=== PATIENT | female | born 1935 | race Caucasian/White ===

== ENCOUNTER 2017-08-19 02:01 | Outpatient (CLI) | payer MEDICARE | END 2017-08-19 02:02 | disposition EMS.NT | LOC: EMS 02:01 | PROVIDERS: ATTEND Surgery | DX: R55 Syncope and collapse (principal); R73.09 Other abnormal glucose ==

== ENCOUNTER 2017-11-14 09:07 | Outpatient (CLI) | payer MEDICARE ==
--- NOTE | 2017-11-14 11:59 | XRAY Report ---
TWO-VIEW RIGHT SHOULDER: 11/14/2017 CLINICAL INDICATION: Pain. FINDINGS: Frontal and scapular Y views of the right shoulder demonstrate degenerative changes of the glenohumeral and acromioclavicular joints. There is no evidence of acute fracture. No foreign body is seen in the soft tissues. IMPRESSION: OSTEOARTHRITIS. NO EVIDENCE OF ACUTE FRACTURE. TD: 11/14/2017 11:58
== END 2017-11-14 09:08 | disposition home or self-care (01) ==
LOC: DI.S 09:07
PROVIDERS: ATTEND Family Medicine
DX: M25.511 Pain in right shoulder (principal); M19.011 Primary osteoarthritis, right shoulder

== ENCOUNTER 2017-12-12 08:00 | Outpatient (CLI) | payer MEDICARE | END 2017-12-12 08:01 | disposition home or self-care (01) | LOC: LAB.R 08:00 | PROVIDERS: ATTEND Nurse Practitioner Family | DX: S81.811A Laceration without foreign body, right lower leg, initial encounter (principal) | CPT/HCPCS: 87070; 87205 ==

== ENCOUNTER 2018-08-04 10:28 | Outpatient (CLI) | payer MEDICARE ==
[2018-08-04 18:20] LABS: HB2 TOTAL 11.4 g/dL; HEMOGLOBIN A1C 0.59 g/dL; HEMOGLOBIN A1C % 6.9 % (4.6-6.2)
[2018-08-04 19:47] LABS: ALBUMIN 3.7 g/dL (3.2-5.5); ALBUMIN/GLOBULIN RATIO 0.9 (1.0-2.2); ALKALINE PHOSPHATASE 63 IU/L (42-121); ALT ALANINE AMINOTRANSFERASE 15 IU/L (10-60); AST ASPARTATE AMINOTRANSFERASE 18 IU/L (10-42); BILIRUBIN,TOTAL 0.7 mg/dL (0.2-1.0); BUN - BLOOD UREA NITROGEN 41 mg/dL (6-20); CALCIUM 9.5 mg/dL (8.5-10.3); CARBON DIOXIDE - CO2 25 mmol/L (21-32); CHLORIDE 102 mmol/L (101-111); CHOL/HDL RATIO 3.9 (<4.4); CHOLESTEROL 190 mg/dL; CREATININE 1.9 mg/dL (0.4-1.0); GFR - MDRD 25 (>89); GLUCOSE 110 mg/dL (70-100); HDL CHOLESTEROL 49 mg/dL; LDL CHOLESTEROL,CALCULATED 118 mg/dL; LDL/HDL RATIO 2.4 (<4.4); SODIUM 136 mmol/L (135-145); TOTAL PROTEIN 7.6 g/dL (6.7-8.2); VLDL CHOLESTEROL 23 mg/dL
== END 2018-08-04 10:29 | disposition home or self-care (01) ==
LOC: LAB.F 10:28
PROVIDERS: ATTEND Internal Medicine
DX: E11.22 Type 2 diabetes mellitus with diabetic chronic kidney disease (principal)
CPT/HCPCS: 36415; 80053; 80061; 83036; 83721

== ENCOUNTER 2018-08-10 11:47 | Outpatient (CLI) | payer MEDICARE ==
[2018-08-10 17:58] LABS: CALCIUM 9.4 mg/dL (8.5-10.3); CREATININE 1.9 mg/dL (0.4-1.0)
== END 2018-08-10 23:59 | disposition home or self-care (01) ==
LOC: LAB.F 11:47
PROVIDERS: ATTEND Internal Medicine
DX: N18.3 Chronic kidney disease, stage 3 (moderate) (principal)
CPT/HCPCS: 36415; 80048

== ENCOUNTER 2018-10-02 08:40 | Outpatient (CLI) | payer MEDICARE ==
[2018-10-02 10:24] LABS: BASOPHILS # (AUTO) 0.2 10^3/uL (0.0-0.1); BASOPHILS % (AUTO) 1.7 %; EOSINOPHILS # (AUTO) 0.4 10^3/uL (0.0-0.7); EOSINOPHILS % (AUTO) 4.7 %; HGB - HEMOGLOBIN 9.7 g/dL (12.0-16.0); LYMPHOCYTES # (AUTO) 1.8 10^3/uL (1.5-3.5); MEAN CORPUSCULAR HGB CONC 33.1 g/dL (32.0-36.0); MEAN CORPUSCULAR VOLUME 84.7 fL (81.0-99.0); MEAN PLATELET VOLUME 9.4 fL (7.9-10.8); MONOCYTES # (AUTO) 0.8 10^3/uL (0.0-1.0); MONOCYTES % (AUTO) 8.7 %; NEUTROPHILS # (AUTO) 5.8 10^3/uL (1.5-6.6); NEUTROPHILS % (AUTO) 64.9 %; PLT - PLATELET COUNT 248 10^3/uL (130-450); RED BLOOD COUNT 3.46 10^6/uL (4.20-5.40); RED CELL DISTRIBUTION WIDTH 13.7 % (12.0-15.0)
[2018-10-02 10:26] LABS: BILIRUBIN,URINE NEGATIVE (NEGATIVE); GLUCOSE, URINE (UA) NEGATIVE (NEGATIVE); KETONES,URINE (UA) NEGATIVE (NEGATIVE); LEUKOCYTE ESTERASE, URINE NEGATIVE (NEGATIVE); NITRITE,URINE NEGATIVE (NEGATIVE); OCCULT BLOOD,URINE NEGATIVE (NEGATIVE); PROTEIN,URINE NEGATIVE (NEGATIVE); UROBILINOGEN,URINE 0.2 (NORMAL) E.U./dL (NORMAL)
[2018-10-02 10:27] LABS: CREATININE,URINE 95.2 mg/dL; PROTEIN/CREATININE RATIO,URINE 0.2 (<=0.2)
[2018-10-02 10:28] LABS: CLARITY,URINE CLEAR (CLEAR)
[2018-10-02 10:42] LABS: CALCIUM 9.2 mg/dL (8.5-10.3); CREATININE 2.1 mg/dL (0.4-1.0)
[2018-10-02 10:50] LABS: FERRITIN 317.2 ng/mL (11.0-306.8)
[2018-10-02 10:53] LABS: FOLATE 21.08 ng/mL (5.90 - >24.8)
== END 2018-10-02 08:41 | disposition home or self-care (01) ==
LOC: LAB.F 08:40
PROVIDERS: ATTEND Internal Medicine Nephrology
DX: N18.4 Chronic kidney disease, stage 4 (severe) (principal); D63.1 Anemia in chronic kidney disease
CPT/HCPCS: 36415; 80048; 81003; 82570; 82607; 82728; 82746; 83540; 83970; 84156; 84466; 85025

== ENCOUNTER 2018-10-18 14:04 | Outpatient (CLI) | payer MEDICARE ==
--- NOTE | 2018-10-19 08:54 | XRAY Report ---
Reason: OSTEOARTHRITIS OF LEFT KNEE,OSTEOARTHRITIS OF RIGH Procedure Date: 10/18/2018 Accession Number: [id number] / [id number] Procedure: XR - Knee 3 View BILAT CPT Code: FULL RESULT: EXAMS: 1. Right Knee Radiography 2. Left Knee Radiography EXAM DATE:10/18/2018 02:12 PM. CLINICAL HISTORY:Bilateral knee pain COMPARISON: None. TECHNIQUE: 3 views each. FINDINGS: Right Knee: Bones: No fractures or bone lesions. Joints: Medial knee joint space narrowing with spurring. Mild patellofemoral degenerative spurring. No effusion. No subluxations. Soft Tissues: Quadriceps insertion enthesophyte. Vascular calcification. Left Knee: Bones: No fractures or bone lesions. Joints: Degenerative change medial knee joint with spurring. Mild degenerative change patellofemoral articulation. Quadriceps insertion enthesophyte. No effusion. No subluxations. Soft Tissues: Vascular calcification IMPRESSION: No acute bony abnormality. Bilateral knee degenerative change most marked medial knee joint greater than patellofemoral articulation. RADIA
== END 2018-10-18 14:05 | disposition home or self-care (01) ==
LOC: DI 14:04
PROVIDERS: ATTEND Internal Medicine
DX: M17.0 Bilateral primary osteoarthritis of knee (principal)

== ENCOUNTER 2018-11-04 09:06 | Outpatient (CLI) | payer MEDICARE ==
[2018-11-04 17:46] LABS: BASOPHILS # (AUTO) 0.2 10^3/uL (0.0-0.1); BASOPHILS % (AUTO) 2.1 %; EOSINOPHILS # (AUTO) 0.5 10^3/uL (0.0-0.7); EOSINOPHILS % (AUTO) 5.6 %; LYMPHOCYTES # (AUTO) 1.8 10^3/uL (1.5-3.5); LYMPHOCYTES % (AUTO) 22.7 %; MEAN CORPUSCULAR HEMOGLOBIN 28.4 pg (27.0-31.0); MEAN CORPUSCULAR HGB CONC 32.4 g/dL (32.0-36.0); MEAN CORPUSCULAR VOLUME 87.5 fL (81.0-99.0); MEAN PLATELET VOLUME 9.2 fL (7.9-10.8); MONOCYTES # (AUTO) 0.8 10^3/uL (0.0-1.0); MONOCYTES % (AUTO) 9.6 %; NEUTROPHILS # (AUTO) 4.8 10^3/uL (1.5-6.6); PLT - PLATELET COUNT 308 10^3/uL (130-450); RED BLOOD COUNT 3.17 10^6/uL (4.20-5.40)
[2018-11-04 18:18] LABS: FERRITIN 327.1 ng/mL (11.0-306.8)
[2018-11-04 18:19] LABS: BILIRUBIN,URINE NEGATIVE (NEGATIVE); GLUCOSE, URINE (UA) NEGATIVE (NEGATIVE); KETONES,URINE (UA) NEGATIVE (NEGATIVE); LEUKOCYTE ESTERASE, URINE TRACE (NEGATIVE); NITRITE,URINE NEGATIVE (NEGATIVE); OCCULT BLOOD,URINE NEGATIVE (NEGATIVE); PROTEIN,URINE NEGATIVE (NEGATIVE); UROBILINOGEN,URINE 0.2 (NORMAL) E.U./dL (NORMAL)
[2018-11-04 18:21] LABS: FOLATE 14.53 ng/mL (5.90 - >24.8)
[2018-11-04 18:43] LABS: CALCIUM 9.5 mg/dL (8.5-10.3)
[2018-11-04 18:56] LABS: BACTERIA,URINE None Seen /HPF (None Seen); CLARITY,URINE CLEAR (CLEAR); RBC,URINE None Seen /HPF (0-5); SQUAMOUS EPITHELIAL CELL,UR FEW Squamous (<= Few)
[2018-11-04 19:04] LABS: CREATININE,URINE 41.2 mg/dL; PROTEIN/CREATININE RATIO,URINE 0.3 (<=0.2)
[2018-11-04 19:07] LABS: CREATININE 1.8 mg/dL (0.4-1.0)
== END 2018-11-04 09:07 | disposition home or self-care (01) ==
LOC: LAB.F 09:06
PROVIDERS: ATTEND Internal Medicine Nephrology
DX: N18.4 Chronic kidney disease, stage 4 (severe) (principal); D63.1 Anemia in chronic kidney disease
CPT/HCPCS: 36415; 80048; 81001; 82570; 82607; 82728; 82746; 83540; 84100; 84156; 84466; 85025

== ENCOUNTER 2018-12-08 11:34 | Outpatient (CLI) | payer MEDICARE ==
[2018-12-08 18:01] LABS: BASOPHILS # (AUTO) 0.1 10^3/uL (0.0-0.1); BASOPHILS % (AUTO) 1.5 %; EOSINOPHILS # (AUTO) 0.4 10^3/uL (0.0-0.7); EOSINOPHILS % (AUTO) 4.4 %; HGB - HEMOGLOBIN 8.2 g/dL (12.0-16.0); LYMPHOCYTES # (AUTO) 1.4 10^3/uL (1.5-3.5); LYMPHOCYTES % (AUTO) 16.4 %; MEAN CORPUSCULAR HEMOGLOBIN 28.9 pg (27.0-31.0); MEAN CORPUSCULAR HGB CONC 32.5 g/dL (32.0-36.0); MEAN CORPUSCULAR VOLUME 88.9 fL (81.0-99.0); MEAN PLATELET VOLUME 9.1 fL (7.9-10.8); MONOCYTES # (AUTO) 0.7 10^3/uL (0.0-1.0); MONOCYTES % (AUTO) 8.5 %; NEUTROPHILS # (AUTO) 5.9 10^3/uL (1.5-6.6); NEUTROPHILS % (AUTO) 69.2 %; PLT - PLATELET COUNT 281 10^3/uL (130-450); RED BLOOD COUNT 2.84 10^6/uL (4.20-5.40); RED CELL DISTRIBUTION WIDTH 14.7 % (12.0-15.0); WHITE BLOOD COUNT 8.5 x10^3/uL (4.8-10.8)
== END 2018-12-08 11:35 | disposition home or self-care (01) ==
LOC: LAB.F 11:34
PROVIDERS: ATTEND Emergency Medicine
DX: D64.9 Anemia, unspecified (principal)
CPT/HCPCS: 36415; 85025

== ENCOUNTER 2018-12-15 13:07 | Outpatient (CLI) | payer MEDICARE ==
[2018-12-15 17:41] LABS: BASOPHILS # (AUTO) 0.1 10^3/uL (0.0-0.1); BASOPHILS % (AUTO) 1.4 %; EOSINOPHILS # (AUTO) 0.4 10^3/uL (0.0-0.7); EOSINOPHILS % (AUTO) 4.2 %; HGB - HEMOGLOBIN 8.1 g/dL (12.0-16.0); LYMPHOCYTES # (AUTO) 1.6 10^3/uL (1.5-3.5); LYMPHOCYTES % (AUTO) 15.7 %; MEAN CORPUSCULAR HEMOGLOBIN 29.3 pg (27.0-31.0); MEAN CORPUSCULAR HGB CONC 32.8 g/dL (32.0-36.0); MEAN CORPUSCULAR VOLUME 89.5 fL (81.0-99.0); MEAN PLATELET VOLUME 9.4 fL (7.9-10.8); MONOCYTES % (AUTO) 9.9 %; NEUTROPHILS # (AUTO) 6.8 10^3/uL (1.5-6.6); NEUTROPHILS % (AUTO) 68.8 %; PLT - PLATELET COUNT 267 10^3/uL (130-450); RED BLOOD COUNT 2.76 10^6/uL (4.20-5.40); RED CELL DISTRIBUTION WIDTH 14.3 % (12.0-15.0); WHITE BLOOD COUNT 9.9 x10^3/uL (4.8-10.8)
[2018-12-15 17:50] LABS: BILIRUBIN,URINE NEGATIVE (NEGATIVE); GLUCOSE, URINE (UA) NEGATIVE (NEGATIVE); KETONES,URINE (UA) NEGATIVE (NEGATIVE); LEUKOCYTE ESTERASE, URINE TRACE (NEGATIVE); NITRITE,URINE NEGATIVE (NEGATIVE); OCCULT BLOOD,URINE NEGATIVE (NEGATIVE); PH,URINE 5.5 PH (5.0-7.5); PROTEIN,URINE NEGATIVE (NEGATIVE); UROBILINOGEN,URINE 0.2 (NORMAL) E.U./dL (NORMAL)
[2018-12-15 17:51] LABS: CLARITY,URINE HAZY (CLEAR)
[2018-12-15 18:00] LABS: CALCIUM 9.4 mg/dL (8.5-10.3); CREATININE 2.5 mg/dL (0.4-1.0)
[2018-12-15 18:12] LABS: BACTERIA,URINE None Seen /HPF (None Seen); RBC,URINE None Seen /HPF (0-5); SQUAMOUS EPITHELIAL CELL,UR NONE SEEN (<= Few)
[2018-12-15 18:18] LABS: FERRITIN 215.7 ng/mL (11.0-306.8)
[2018-12-15 18:32] LABS: CREATININE,URINE 23.6 mg/dL; TOTAL PROTEIN,URINE TIMED < 6 mg/dL
[2018-12-15 19:03] LABS: FOLATE > 49.60 ng/mL (5.90 - >24.8)
== END 2018-12-15 13:08 | disposition home or self-care (01) ==
LOC: LAB.F 13:07
PROVIDERS: ATTEND Internal Medicine Nephrology
DX: N18.4 Chronic kidney disease, stage 4 (severe) (principal)
CPT/HCPCS: 36415; 80048; 81001; 82570; 82607; 82728; 82746; 83540; 84156; 85025

== ENCOUNTER 2019-01-13 10:10 | Outpatient (CLI) | payer MEDICARE ==
[2019-01-13 17:52] LABS: BILIRUBIN,URINE NEGATIVE (NEGATIVE); GLUCOSE, URINE (UA) NEGATIVE (NEGATIVE); KETONES,URINE (UA) NEGATIVE (NEGATIVE); LEUKOCYTE ESTERASE, URINE SMALL (NEGATIVE); NITRITE,URINE NEGATIVE (NEGATIVE); OCCULT BLOOD,URINE NEGATIVE (NEGATIVE); PH,URINE 5.5 PH (5.0-7.5); PROTEIN,URINE NEGATIVE (NEGATIVE); UROBILINOGEN,URINE 0.2 (NORMAL) E.U./dL (NORMAL)
[2019-01-13 17:52] LABS: BASOPHILS # (AUTO) 0.1 10^3/uL (0.0-0.1); BASOPHILS % (AUTO) 1.2 %; EOSINOPHILS # (AUTO) 0.3 10^3/uL (0.0-0.7); EOSINOPHILS % (AUTO) 3.6 %; HGB - HEMOGLOBIN 8.7 g/dL (12.0-16.0); LYMPHOCYTES # (AUTO) 1.8 10^3/uL (1.5-3.5); LYMPHOCYTES % (AUTO) 19.2 %; MEAN CORPUSCULAR HEMOGLOBIN 28.8 pg (27.0-31.0); MEAN CORPUSCULAR HGB CONC 30.5 g/dL (32.0-36.0); MEAN CORPUSCULAR VOLUME 94.4 fL (81.0-99.0); MONOCYTES # (AUTO) 0.8 10^3/uL (0.0-1.0); MONOCYTES % (AUTO) 8.4 %; NEUTROPHILS # (AUTO) 6.1 10^3/uL (1.5-6.6); NEUTROPHILS % (AUTO) 67.4 %; PLT - PLATELET COUNT 305 10^3/uL (130-450); RED BLOOD COUNT 3.02 10^6/uL (4.20-5.40); RED CELL DISTRIBUTION WIDTH 13.2 % (12.0-15.0); WHITE BLOOD COUNT 9.1 x10^3/uL (4.8-10.8)
[2019-01-13 18:02] LABS: CLARITY,URINE CLEAR (CLEAR)
[2019-01-13 18:10] LABS: BACTERIA,URINE None Seen /HPF (None Seen); RBC,URINE 0-5 /HPF (0-5); SQUAMOUS EPITHELIAL CELL,UR RARE Squamous (<= Few)
[2019-01-13 18:22] LABS: CALCIUM 9.3 mg/dL (8.5-10.3); CREATININE 1.9 mg/dL (0.4-1.0)
[2019-01-13 18:41] LABS: CREATININE,URINE 48.5 mg/dL
[2019-01-13 18:42] LABS: TOTAL PROTEIN,URINE TIMED < 6 mg/dL
== END 2019-01-13 10:11 | disposition home or self-care (01) ==
LOC: LAB.S 10:10
PROVIDERS: ATTEND Emergency Medicine
DX: D64.9 Anemia, unspecified (principal); N18.4 Chronic kidney disease, stage 4 (severe)
CPT/HCPCS: 36415; 80048; 81001; 82570; 82607; 82728; 82746; 83540; 84156; 84466; 85025

== ENCOUNTER 2019-01-20 14:02 | Outpatient (CLI) | payer MEDICARE ==
[2019-01-20 17:22] LABS: BASOPHILS # (AUTO) 0.1 10^3/uL (0.0-0.1); BASOPHILS % (AUTO) 1.1 %; EOSINOPHILS # (AUTO) 0.4 10^3/uL (0.0-0.7); EOSINOPHILS % (AUTO) 3.8 %; HGB - HEMOGLOBIN 8.7 g/dL (12.0-16.0); LYMPHOCYTES % (AUTO) 19.5 %; MEAN CORPUSCULAR HEMOGLOBIN 28.5 pg (27.0-31.0); MEAN CORPUSCULAR HGB CONC 30.6 g/dL (32.0-36.0); MEAN CORPUSCULAR VOLUME 93.1 fL (81.0-99.0); MEAN PLATELET VOLUME 11.4 fL (7.9-10.8); MONOCYTES # (AUTO) 0.9 10^3/uL (0.0-1.0); MONOCYTES % (AUTO) 9.1 %; NEUTROPHILS # (AUTO) 6.7 10^3/uL (1.5-6.6); NEUTROPHILS % (AUTO) 66.2 %; PLT - PLATELET COUNT 298 10^3/uL (130-450); RED BLOOD COUNT 3.05 10^6/uL (4.20-5.40); RED CELL DISTRIBUTION WIDTH 12.8 % (12.0-15.0); WHITE BLOOD COUNT 10.2 x10^3/uL (4.8-10.8)
== END 2019-01-20 14:03 | disposition home or self-care (01) ==
LOC: LAB.S 14:02
PROVIDERS: ATTEND Emergency Medicine
DX: N18.4 Chronic kidney disease, stage 4 (severe) (principal); D63.1 Anemia in chronic kidney disease
CPT/HCPCS: 36415; 85025

== ENCOUNTER 2019-08-04 14:37 | Outpatient (CLI) | payer MEDICARE ==
[2019-08-04 17:22] LABS: BASOPHILS # (AUTO) 0.2 10^3/uL (0.0-0.1); BASOPHILS % (AUTO) 1.4 %; EOSINOPHILS # (AUTO) 0.3 10^3/uL (0.0-0.7); EOSINOPHILS % (AUTO) 3.2 %; HGB - HEMOGLOBIN 8.9 g/dL (12.0-16.0); LYMPHOCYTES # (AUTO) 2.3 10^3/uL (1.5-3.5); LYMPHOCYTES % (AUTO) 21.8 %; MEAN CORPUSCULAR HEMOGLOBIN 29.1 pg (27.0-31.0); MEAN CORPUSCULAR HGB CONC 31.2 g/dL (32.0-36.0); MEAN CORPUSCULAR VOLUME 93.1 fL (81.0-99.0); MEAN PLATELET VOLUME 11.4 fL (7.9-10.8); MONOCYTES % (AUTO) 9.1 %; NEUTROPHILS # (AUTO) 6.8 10^3/uL (1.5-6.6); PLT - PLATELET COUNT 296 10^3/uL (130-450); RED BLOOD COUNT 3.06 10^6/uL (4.20-5.40); RED CELL DISTRIBUTION WIDTH 12.3 % (12.0-15.0); WHITE BLOOD COUNT 10.6 x10^3/uL (4.8-10.8)
== END 2019-08-04 14:38 | disposition home or self-care (01) ==
LOC: LAB.S 14:37
PROVIDERS: ATTEND Emergency Medicine
DX: N18.4 Chronic kidney disease, stage 4 (severe) (principal)
CPT/HCPCS: 36415; 85025

== ENCOUNTER 2019-08-12 09:06 | Outpatient (CLI) | payer MEDICARE ==
[2019-08-12 17:55] LABS: HEMOGLOBIN A1C 0.55 g/dL; HEMOGLOBIN A1C % 7.7 % (4.6-6.2)
[2019-08-12 18:00] LABS: ALBUMIN 3.6 g/dL (3.2-5.5); ALBUMIN/GLOBULIN RATIO 1.1 (1.0-2.2); ALKALINE PHOSPHATASE 43 IU/L (42-121); ALT ALANINE AMINOTRANSFERASE 13 IU/L (10-60); AST ASPARTATE AMINOTRANSFERASE 17 IU/L (10-42); BILIRUBIN,TOTAL 0.6 mg/dL (0.2-1.0); BUN - BLOOD UREA NITROGEN 38 mg/dL (6-20); CALCIUM 9.3 mg/dL (8.5-10.3); CARBON DIOXIDE - CO2 25 mmol/L (21-32); CHLORIDE 106 mmol/L (101-111); CHOL/HDL RATIO 4.3 (<4.4); CHOLESTEROL 199 mg/dL; GFR - MDRD 24 (>89); GLUCOSE 122 mg/dL (70-100); HDL CHOLESTEROL 46 mg/dL; LDL CHOLESTEROL,CALCULATED 128 mg/dL; LDL/HDL RATIO 2.8 (<4.4); SODIUM 139 mmol/L (135-145); TOTAL PROTEIN 6.9 g/dL (6.7-8.2); VLDL CHOLESTEROL 25 mg/dL
== END 2019-08-12 09:07 | disposition home or self-care (01) ==
LOC: LAB.S 09:06
PROVIDERS: ATTEND Internal Medicine
DX: E11.22 Type 2 diabetes mellitus with diabetic chronic kidney disease (principal)
CPT/HCPCS: 36415; 80053; 80061; 83036; 83721

== ENCOUNTER 2019-08-31 08:46 | Outpatient (CLI) | payer MEDICARE ==
[2019-08-31 17:45] LABS: ALBUMIN 3.7 g/dL (3.2-5.5); CALCIUM 9.7 mg/dL (8.5-10.3); PHOSPHORUS 3.7 mg/dL (2.5-4.6)
== END 2019-08-31 08:47 | disposition home or self-care (01) ==
LOC: LAB.S 08:46
PROVIDERS: ATTEND Internal Medicine Nephrology
DX: N18.4 Chronic kidney disease, stage 4 (severe) (principal)
CPT/HCPCS: 36415; 80069; 83970

== ENCOUNTER 2019-10-07 13:15 | Outpatient (CLI) | payer MEDICARE ==
[2019-10-07 16:24] LABS: ALBUMIN 3.7 g/dL (3.2-5.5); CALCIUM 9.3 mg/dL (8.5-10.3); PHOSPHORUS 3.8 mg/dL (2.5-4.6)
== END 2019-10-07 13:16 | disposition home or self-care (01) ==
LOC: LAB.S 13:15
PROVIDERS: ATTEND Internal Medicine Nephrology
DX: N18.4 Chronic kidney disease, stage 4 (severe) (principal)
CPT/HCPCS: 36415; 80069; 83970

== ENCOUNTER 2019-10-22 14:03 | Emergency (ER) | payer MEDICARE ==
[2019-10-22] MEDS ORDERED: PROPARACAINE 0.5% OPHTH DROPS 15 ML EACHEYE STA (14:26)
--- NOTE | 2019-10-22 14:27 | ED Physician Documentation ---
PD HPI OPHTHO - Stated complaint Stated Complaint: R EYE PX - Chief complaint Chief Complaint: Heent - History obtained from History obtained from: Patient - History of Present Illness Timing - onset: How many days ago (3) Timing - duration: Days (3) Timing - details: Abrupt onset, Still present Location: Right Quality / character: Aching Associated symptoms: Redness, Matting, FB sensation Contributing factors: FB (she was weed wacking 3 days ago and felt something into her right eye. tried to flush it out, but has persistent FB feeling at lateral right eye. Watering and has some matting in mornings. No prior similar.). No: Wears contacts Similar symptoms before: Has not had sx before Review of Systems Constitutional: denies: Fever, Chills Eyes: reports: Discharge, Irritation. 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 - Present Medications Home Medications: Ambulatory Orders Medication Instructions Recorded Confirmed Alendronate Sodium [Fosamax] 70 mg PO TITR 11/29/13 10/13/14 Aspirin Chewable [St Yoseph 81 mg PO DAILY 11/29/13 01/05/18 Aspirin] Insulin Glargine [Lantus Solostar] 10 - 30 units SUBQ QPM 11/29/13 01/05/18 Insulin Glulisine [Apidra] 3 - 10 unit SQ TIDWM 08/04/14 01/05/18 Lovastatin 20 mg PO QPM 10/14/14 01/05/18 Omeprazole 20 mg PO QDAC 10/14/14 01/05/18 Albuterol Sulf [Ventolin Hfa 1 - 2 puffs INH Q4HR PRN 01/05/18 01/05/18 Inhaler] Cholecalciferol [Vitamin D3] 5,000 unit PO DAILY 01/05/18 01/05/18 Cyanocobalamin (Vitamin B-12) 2,500 mcg PO DAILY 01/05/18 01/05/18 [Vitamin B-12] Doxazosin Mesylate 1 mg PO BID 01/05/18 01/05/18 Furosemide 20 mg PO DAILY PRN 01/05/18 01/05/18 Valsartan 80 mg PO DAILY 01/05/18 01/05/18 Neomycin Rueda/Baci Zn/Poly/Hc 1 applic OP QID #3.5 oint...g. 10/22/19 [Isac-Polycin Hc Eye Ointment] - Allergies Allergies/Adverse Reactions: Allergies Allergy/AdvReac Type Severity Reaction Status Date / Time No Known Drug Allergies Allergy Verified 10/22/19 14:15 - Social History Does the pt smoke?: No Smoking Status: Never smoker - Immunizations Immunizations are current?: Yes PD ED PE NORMAL - Vitals Vital signs reviewed: Yes - General General: Alert and oriented X 3, No acute distress, Well developed/nourished - HEENT HEENT: PERRL, EOMI, Other (right periorbital area of eyelids have some redness and swelling. No noted FB. Staining showed local linear uptake at lateral sclera, c/w infection. ) - Neck Neck: Supple, no meningeal sign, No adenopathy PD ED PE EXPANDED - Eyes Eyes: Fluorescein uptake, Anterior chambers clear, Normal fundi Results - Vitals Vitals: Vital Signs - 24 hr 10/22/19 10/22/19 14:15 15:33 Temperature 36.8 C Heart Rate 52 L 109 H Respiratory 17 18 Rate Blood Pressure 153/86 H 186/102 H O2 Saturation 98 98 Oxygen O2 Source Room air PD MEDICAL DECISION MAKING - ED course Complexity details: considered differential, d/w patient Departure - Departure Disposition: 01 Home, Self Care Clinical Impression: Corneal abrasion Qualifiers: Encounter type: initial encounter Laterality: right Qualified Code(s): S05.01XA - Injury of conjunctiva and corneal abrasion without foreign body, right eye, initial encounter Conjunctivitis, acute Qualifiers: Acute conjunctivitis type: unspecified Laterality: right Qualified Code(s): H10.31 - Unspecified acute conjunctivitis, right eye Condition: Stable Record reviewed to determine appropriate education?: Yes Instructions: ED Eye Injury Corneal Abrasion Follow-Up: Uvaldo Rodriguez MD [Primary Care Provider] - Prescriptions: Neomycin Rueda/Baci Zn/Poly/Hc [Isac-Polycin Hc Eye Ointment] 1 applic OP QID #3.5 oint...g. Comments: Use the antibiotic/anti-inflammatory eye ointment 4 times a day for the next several days until this feels fully healed. There is an abrasion on the surface of the eye that should heal up on its own. The ointment component of this should help soothe the area on the surface of the eye. The antibiotic and anti-inflammatory portions are to try to help with the swelling and irritation and in case there is some infection brewing. Recheck if not improved well over the next couple of days and return sooner if worsening. Discharge Date/Time: 10/22/19 15:44
[2019-10-22 15:34] VITALS: BP 186/102
== END 2019-10-22 15:44 | disposition home or self-care (01) ==
LOC: ED 14:03
DX: S05.01XA Injury of conjunctiva and corneal abrasion without foreign body, right eye, initial encounter (principal); W20.8XXA Other cause of strike by thrown, projected or falling object, initial encounter; Y93.H2 Activity, gardening and landscaping; H10.31 Unspecified acute conjunctivitis, right eye; I10 Essential (primary) hypertension; E11.9 Type 2 diabetes mellitus without complications; Z79.4 Long term (current) use of insulin
CPT/HCPCS: 99282; 99283; J3490

== ENCOUNTER 2019-10-27 15:21 | Outpatient (CLI) | payer MEDICARE ==
[2019-10-27 15:42] LABS: BASOPHILS # (AUTO) 0.1 10^3/uL (0.0-0.1); EOSINOPHILS # (AUTO) 0.4 10^3/uL (0.0-0.7); EOSINOPHILS % (AUTO) 3.9 %; HGB - HEMOGLOBIN 8.7 g/dL (12.0-16.0); LYMPHOCYTES % (AUTO) 20.7 %; MEAN CORPUSCULAR HEMOGLOBIN 29.7 pg (27.0-31.0); MEAN CORPUSCULAR VOLUME 92.8 fL (81.0-99.0); MONOCYTES # (AUTO) 0.8 10^3/uL (0.0-1.0); MONOCYTES % (AUTO) 8.5 %; NEUTROPHILS # (AUTO) 6.4 10^3/uL (1.5-6.6); NEUTROPHILS % (AUTO) 65.4 %; PLT - PLATELET COUNT 234 10^3/uL (130-450); RED BLOOD COUNT 2.93 10^6/uL (4.20-5.40); RED CELL DISTRIBUTION WIDTH 12.8 % (12.0-15.0); WHITE BLOOD COUNT 9.8 x10^3/uL (4.8-10.8)
[2019-10-27 16:01] LABS: % IRON SATURATION 25 % (20-50); IRON 62 ug/dL (28-170); TOTAL IRON BINDING CAPACITY 249 ug/dL (250-450); TRANSFERRIN 178 mg/dL (192-382)
== END 2019-10-27 15:22 | disposition home or self-care (01) ==
LOC: LAB 15:21
PROVIDERS: ATTEND Emergency Medicine
DX: Z51.81 Encounter for therapeutic drug level monitoring (principal); Z79.899 Other long term (current) drug therapy
CPT/HCPCS: 36415; 82728; 83540; 84466; 85025

== ENCOUNTER 2019-11-14 13:12 | Outpatient (CLI) | payer MEDICARE ==
[2019-11-14 13:29] LABS: BASOPHILS # (AUTO) 0.1 10^3/uL (0.0-0.1); BASOPHILS % (AUTO) 1.1 %; EOSINOPHILS # (AUTO) 0.3 10^3/uL (0.0-0.7); EOSINOPHILS % (AUTO) 2.9 %; LYMPHOCYTES # (AUTO) 1.5 10^3/uL (1.5-3.5); LYMPHOCYTES % (AUTO) 13.7 %; MEAN CORPUSCULAR HEMOGLOBIN 29.8 pg (27.0-31.0); MEAN CORPUSCULAR HGB CONC 32.1 g/dL (32.0-36.0); MEAN CORPUSCULAR VOLUME 92.7 fL (81.0-99.0); MEAN PLATELET VOLUME 9.8 fL (7.9-10.8); MONOCYTES % (AUTO) 9.1 %; NEUTROPHILS # (AUTO) 7.7 10^3/uL (1.5-6.6); NEUTROPHILS % (AUTO) 72.7 %; PLT - PLATELET COUNT 261 10^3/uL (130-450); RED BLOOD COUNT 3.02 10^6/uL (4.20-5.40); RED CELL DISTRIBUTION WIDTH 13.3 % (12.0-15.0); WHITE BLOOD COUNT 10.6 x10^3/uL (4.8-10.8)
[2019-11-14 14:29] LABS: ALBUMIN 3.6 g/dL (3.2-5.5); CALCIUM 8.7 mg/dL (8.5-10.3); CREATININE 2.1 mg/dL (0.4-1.0); PHOSPHORUS 3.6 mg/dL (2.5-4.6)
== END 2019-11-14 13:13 | disposition home or self-care (01) ==
LOC: LAB 13:12
PROVIDERS: ATTEND Internal Medicine Nephrology
DX: D64.9 Anemia, unspecified (principal); N18.4 Chronic kidney disease, stage 4 (severe)
CPT/HCPCS: 36415; 80069; 83970; 85025

== ENCOUNTER 2019-11-29 13:01 | Outpatient (CLI) | payer MEDICARE ==
[2019-11-29 13:33] LABS: BASOPHILS # (AUTO) 0.1 10^3/uL (0.0-0.1); BASOPHILS % (AUTO) 0.9 %; EOSINOPHILS # (AUTO) 0.3 10^3/uL (0.0-0.7); EOSINOPHILS % (AUTO) 2.4 %; LYMPHOCYTES # (AUTO) 1.7 10^3/uL (1.5-3.5); MEAN CORPUSCULAR HEMOGLOBIN 29.9 pg (27.0-31.0); MEAN CORPUSCULAR HGB CONC 31.9 g/dL (32.0-36.0); MEAN CORPUSCULAR VOLUME 93.7 fL (81.0-99.0); MONOCYTES # (AUTO) 1.1 10^3/uL (0.0-1.0); MONOCYTES % (AUTO) 9.7 %; NEUTROPHILS # (AUTO) 8.3 10^3/uL (1.5-6.6); NEUTROPHILS % (AUTO) 71.6 %; PLT - PLATELET COUNT 306 10^3/uL (130-450); RED BLOOD COUNT 3.34 10^6/uL (4.20-5.40); RED CELL DISTRIBUTION WIDTH 14.1 % (12.0-15.0); WHITE BLOOD COUNT 11.6 x10^3/uL (4.8-10.8)
[2019-11-29 13:46] LABS: CREATININE 1.9 mg/dL (0.4-1.0)
== END 2019-11-29 13:02 | disposition home or self-care (01) ==
LOC: LAB 13:01
PROVIDERS: ATTEND Emergency Medicine
DX: D64.9 Anemia, unspecified (principal); N18.4 Chronic kidney disease, stage 4 (severe)
CPT/HCPCS: 36415; 80069; 82565; 83970; 85025

== ENCOUNTER 2019-12-15 13:56 | Outpatient (CLI) | payer MEDICARE ==
[2019-12-15 19:49] LABS: BASOPHILS # (AUTO) 0.1 10^3/uL (0.0-0.1); EOSINOPHILS # (AUTO) 0.2 10^3/uL (0.0-0.7); EOSINOPHILS % (AUTO) 1.9 %; LYMPHOCYTES # (AUTO) 1.5 10^3/uL (1.5-3.5); LYMPHOCYTES % (AUTO) 12.5 %; MEAN CORPUSCULAR HGB CONC 31.7 g/dL (32.0-36.0); MEAN CORPUSCULAR VOLUME 94.6 fL (81.0-99.0); MEAN PLATELET VOLUME 11.2 fL (7.9-10.8); MONOCYTES % (AUTO) 8.6 %; NEUTROPHILS # (AUTO) 9.1 10^3/uL (1.5-6.6); NEUTROPHILS % (AUTO) 75.7 %; PLT - PLATELET COUNT 316 10^3/uL (130-450); RED BLOOD COUNT 3.33 10^6/uL (4.20-5.40); RED CELL DISTRIBUTION WIDTH 13.5 % (12.0-15.0)
[2019-12-15 20:04] LABS: ALBUMIN 3.7 g/dL (3.2-5.5); CALCIUM 9.3 mg/dL (8.5-10.3); CREATININE 2.3 mg/dL (0.4-1.0); PHOSPHORUS 4.3 mg/dL (2.5-4.6)
== END 2019-12-15 13:57 | disposition home or self-care (01) ==
LOC: LAB.S 13:56
PROVIDERS: ATTEND Emergency Medicine
DX: D64.9 Anemia, unspecified (principal); N18.4 Chronic kidney disease, stage 4 (severe)
CPT/HCPCS: 36415; 80069; 83970; 85025

== ENCOUNTER 2019-12-21 11:24 | Outpatient (CLI) | payer MEDICARE ==
--- NOTE | 2019-12-21 15:02 | XRAY Report ---
Reason: M17.11 AND M17.12 OSTEOARTHRITIS OF KNEE Procedure Date: 12/21/2019 Accession Number: [id number] / [id number] Procedure: XRS - Knee 3 View BILAT CPT Code: Final Report FULL RESULT: PROCEDURE: Knee 3 View BILAT INDICATIONS: M17.11 AND M17.12 OSTEOARTHRITIS OF KNEE TECHNIQUE: 3 views of the right and left knee(s) were acquired. COMPARISON: None. FINDINGS: Bones: No fractures or dislocations. No suspicious bony lesions. Mild osteoarthritic degenerative changes noted in the medial compartments of both the right and left knees. Moderate osteophytic degenerative changes noted in the medial and patellofemoral compartments of both the right and left knees. Soft tissues: No joint effusion. No suspicious soft tissue calcifications. IMPRESSION: Bilateral knee tricompartmental osteoarthritis. Reviewed by: Diane Junior MD, PhD on 12/21/2019 3:01 PM PDT Approved by: Diane Junior MD, PhD on 12/21/2019 3:01 PM PDT Station ID: [id number]
== END 2019-12-21 11:25 | disposition home or self-care (01) ==
LOC: DI.S 11:24
PROVIDERS: ATTEND Internal Medicine
DX: M17.0 Bilateral primary osteoarthritis of knee (principal)

== ENCOUNTER 2019-12-28 11:54 | Outpatient (CLI) | payer MEDICARE ==
[2019-12-28 16:01] LABS: HB2 TOTAL 10.4 g/dL; HEMOGLOBIN A1C 0.54 g/dL; HEMOGLOBIN A1C % 6.9 % (4.6-6.2)
== END 2019-12-28 11:55 | disposition home or self-care (01) ==
LOC: LAB.S 11:54
PROVIDERS: ATTEND Internal Medicine
DX: E11.22 Type 2 diabetes mellitus with diabetic chronic kidney disease (principal); N18.9 Chronic kidney disease, unspecified
CPT/HCPCS: 36415; 83036

== ENCOUNTER 2020-01-03 10:01 | Outpatient (CLI) | payer MEDICARE ==
[2020-01-03 15:39] LABS: BASOPHILS # (AUTO) 0.1 10^3/uL (0.0-0.1); BASOPHILS % (AUTO) 1.5 %; EOSINOPHILS # (AUTO) 0.2 10^3/uL (0.0-0.7); EOSINOPHILS % (AUTO) 3.2 %; HGB - HEMOGLOBIN 10.2 g/dL (12.0-16.0); LYMPHOCYTES # (AUTO) 1.2 10^3/uL (1.5-3.5); LYMPHOCYTES % (AUTO) 15.7 %; MEAN CORPUSCULAR HEMOGLOBIN 30.2 pg (27.0-31.0); MEAN CORPUSCULAR HGB CONC 31.5 g/dL (32.0-36.0); MEAN CORPUSCULAR VOLUME 95.9 fL (81.0-99.0); MEAN PLATELET VOLUME 11.3 fL (7.9-10.8); MONOCYTES # (AUTO) 0.7 10^3/uL (0.0-1.0); MONOCYTES % (AUTO) 9.4 %; NEUTROPHILS # (AUTO) 5.2 10^3/uL (1.5-6.6); NEUTROPHILS % (AUTO) 69.7 %; PLT - PLATELET COUNT 287 10^3/uL (130-450); RED BLOOD COUNT 3.38 10^6/uL (4.20-5.40); RED CELL DISTRIBUTION WIDTH 13.5 % (12.0-15.0); WHITE BLOOD COUNT 7.4 x10^3/uL (4.8-10.8)
[2020-01-03 16:04] LABS: CREATININE 2.1 mg/dL (0.4-1.0)
== END 2020-01-03 10:02 | disposition home or self-care (01) ==
LOC: LAB.S 10:01
PROVIDERS: ATTEND Emergency Medicine
DX: D64.9 Anemia, unspecified (principal)
CPT/HCPCS: 36415; 82565; 85025

== ENCOUNTER 2020-01-17 11:33 | Outpatient (CLI) | payer MEDICARE ==
[2020-01-17 15:35] LABS: BASOPHILS # (AUTO) 0.1 10^3/uL (0.0-0.1); BASOPHILS % (AUTO) 1.2 %; EOSINOPHILS # (AUTO) 0.2 10^3/uL (0.0-0.7); EOSINOPHILS % (AUTO) 2.8 %; HGB - HEMOGLOBIN 11.3 g/dL (12.0-16.0); LYMPHOCYTES # (AUTO) 1.3 10^3/uL (1.5-3.5); LYMPHOCYTES % (AUTO) 14.6 %; MEAN CORPUSCULAR HEMOGLOBIN 30.3 pg (27.0-31.0); MEAN CORPUSCULAR HGB CONC 31.7 g/dL (32.0-36.0); MEAN CORPUSCULAR VOLUME 95.4 fL (81.0-99.0); MEAN PLATELET VOLUME 11.1 fL (7.9-10.8); MONOCYTES # (AUTO) 0.8 10^3/uL (0.0-1.0); MONOCYTES % (AUTO) 8.9 %; NEUTROPHILS # (AUTO) 6.3 10^3/uL (1.5-6.6); NEUTROPHILS % (AUTO) 72.3 %; PLT - PLATELET COUNT 309 10^3/uL (130-450); RED BLOOD COUNT 3.73 10^6/uL (4.20-5.40); WHITE BLOOD COUNT 8.7 x10^3/uL (4.8-10.8)
[2020-01-17 15:52] LABS: CREATININE 2.2 mg/dL (0.4-1.0)
[2020-01-17 15:56] LABS: ALBUMIN 4.1 g/dL (3.2-5.5); CALCIUM 9.5 mg/dL (8.5-10.3); CREATININE 2.1 mg/dL (0.4-1.0); PHOSPHORUS 4.2 mg/dL (2.5-4.6)
== END 2020-01-17 11:34 | disposition home or self-care (01) ==
LOC: LAB.S 11:33
PROVIDERS: ATTEND Emergency Medicine
DX: N18.4 Chronic kidney disease, stage 4 (severe) (principal); D63.1 Anemia in chronic kidney disease
CPT/HCPCS: 36415; 80069; 82565; 83970; 85025

== ENCOUNTER 2020-01-31 14:14 | Outpatient (CLI) | payer MEDICARE ==
[2020-01-31 19:56] LABS: BASOPHILS # (AUTO) 0.1 10^3/uL (0.0-0.1); BASOPHILS % (AUTO) 1.4 %; EOSINOPHILS # (AUTO) 0.3 10^3/uL (0.0-0.7); EOSINOPHILS % (AUTO) 3.3 %; HGB - HEMOGLOBIN 11.9 g/dL (12.0-16.0); LYMPHOCYTES # (AUTO) 1.7 10^3/uL (1.5-3.5); LYMPHOCYTES % (AUTO) 17.9 %; MEAN CORPUSCULAR HEMOGLOBIN 29.5 pg (27.0-31.0); MEAN CORPUSCULAR HGB CONC 31.2 g/dL (32.0-36.0); MEAN CORPUSCULAR VOLUME 94.6 fL (81.0-99.0); MEAN PLATELET VOLUME 11.2 fL (7.9-10.8); MONOCYTES % (AUTO) 10.2 %; NEUTROPHILS # (AUTO) 6.4 10^3/uL (1.5-6.6); NEUTROPHILS % (AUTO) 66.8 %; PLT - PLATELET COUNT 285 10^3/uL (130-450); RED BLOOD COUNT 4.04 10^6/uL (4.20-5.40); RED CELL DISTRIBUTION WIDTH 13.4 % (12.0-15.0); WHITE BLOOD COUNT 9.6 x10^3/uL (4.8-10.8)
[2020-01-31 20:19] LABS: % IRON SATURATION 12 % (20-50); IRON 33 ug/dL (28-170); TOTAL IRON BINDING CAPACITY 270 ug/dL (250-450); TRANSFERRIN 193 mg/dL (192-382)
== END 2020-01-31 14:15 | disposition home or self-care (01) ==
LOC: LAB.S 14:14
PROVIDERS: ATTEND Emergency Medicine
DX: N18.4 Chronic kidney disease, stage 4 (severe) (principal)
CPT/HCPCS: 36415; 82728; 83540; 84466; 85025

== ENCOUNTER 2020-03-01 15:30 | Outpatient (CLI) | payer MEDICARE ==
[2020-03-01 19:46] LABS: BASOPHILS # (AUTO) 0.1 10^3/uL (0.0-0.1); BASOPHILS % (AUTO) 1.1 %; EOSINOPHILS # (AUTO) 0.4 10^3/uL (0.0-0.7); EOSINOPHILS % (AUTO) 3.3 %; HGB - HEMOGLOBIN 12.8 g/dL (12.0-16.0); LYMPHOCYTES # (AUTO) 1.8 10^3/uL (1.5-3.5); LYMPHOCYTES % (AUTO) 17.1 %; MEAN CORPUSCULAR HEMOGLOBIN 28.8 pg (27.0-31.0); MEAN CORPUSCULAR HGB CONC 30.7 g/dL (32.0-36.0); MEAN CORPUSCULAR VOLUME 93.7 fL (81.0-99.0); MEAN PLATELET VOLUME 10.9 fL (7.9-10.8); MONOCYTES # (AUTO) 0.9 10^3/uL (0.0-1.0); MONOCYTES % (AUTO) 8.5 %; NEUTROPHILS # (AUTO) 7.4 10^3/uL (1.5-6.6); NEUTROPHILS % (AUTO) 69.6 %; PLT - PLATELET COUNT 318 10^3/uL (130-450); RED BLOOD COUNT 4.45 10^6/uL (4.20-5.40); RED CELL DISTRIBUTION WIDTH 13.9 % (12.0-15.0); WHITE BLOOD COUNT 10.6 x10^3/uL (4.8-10.8)
[2020-03-01 19:57] LABS: CREATININE 2.1 mg/dL (0.4-1.0)
== END 2020-03-01 15:31 | disposition home or self-care (01) ==
LOC: LAB.S 15:30
PROVIDERS: ATTEND Emergency Medicine
DX: D64.9 Anemia, unspecified (principal)
CPT/HCPCS: 36415; 82565; 85025

== ENCOUNTER 2020-03-15 09:09 | Outpatient (CLI) | payer MEDICARE ==
[2020-03-15 15:26] LABS: BASOPHILS # (AUTO) 0.1 10^3/uL (0.0-0.1); BASOPHILS % (AUTO) 1.3 %; EOSINOPHILS # (AUTO) 0.3 10^3/uL (0.0-0.7); EOSINOPHILS % (AUTO) 3.1 %; HGB - HEMOGLOBIN 12.6 g/dL (12.0-16.0); LYMPHOCYTES # (AUTO) 1.5 10^3/uL (1.5-3.5); LYMPHOCYTES % (AUTO) 16.3 %; MEAN CORPUSCULAR HEMOGLOBIN 29.6 pg (27.0-31.0); MEAN CORPUSCULAR VOLUME 92.5 fL (81.0-99.0); MEAN PLATELET VOLUME 11.3 fL (7.9-10.8); MONOCYTES # (AUTO) 0.8 10^3/uL (0.0-1.0); MONOCYTES % (AUTO) 8.8 %; NEUTROPHILS # (AUTO) 6.3 10^3/uL (1.5-6.6); NEUTROPHILS % (AUTO) 70.1 %; PLT - PLATELET COUNT 268 10^3/uL (130-450); RED BLOOD COUNT 4.26 10^6/uL (4.20-5.40); RED CELL DISTRIBUTION WIDTH 13.4 % (12.0-15.0)
[2020-03-15 15:37] LABS: ALBUMIN 3.8 g/dL (3.2-5.5); CALCIUM 9.6 mg/dL (8.5-10.3); CREATININE 1.8 mg/dL (0.4-1.0); PHOSPHORUS 4.6 mg/dL (2.5-4.6)
[2020-03-15 15:51] LABS: % IRON SATURATION 49 % (20-50); IRON 105 ug/dL (28-170); TOTAL IRON BINDING CAPACITY 214 ug/dL (250-450); TRANSFERRIN 153 mg/dL (192-382)
== END 2020-03-15 09:10 | disposition home or self-care (01) ==
LOC: LAB.S 09:09
PROVIDERS: ATTEND Emergency Medicine
DX: N18.4 Chronic kidney disease, stage 4 (severe) (principal); D63.1 Anemia in chronic kidney disease
CPT/HCPCS: 36415; 80069; 82728; 83540; 83970; 84466; 85025

== ENCOUNTER 2020-04-26 09:02 | Outpatient (CLI) | payer MEDICARE ==
[2020-04-26 16:01] LABS: BASOPHILS # (AUTO) 0.1 10^3/uL (0.0-0.1); BASOPHILS % (AUTO) 1.1 %; EOSINOPHILS # (AUTO) 0.3 10^3/uL (0.0-0.7); EOSINOPHILS % (AUTO) 3.9 %; HGB - HEMOGLOBIN 9.6 g/dL (12.0-16.0); LYMPHOCYTES # (AUTO) 1.5 10^3/uL (1.5-3.5); LYMPHOCYTES % (AUTO) 18.6 %; MEAN CORPUSCULAR HEMOGLOBIN 28.2 pg (27.0-31.0); MEAN CORPUSCULAR HGB CONC 30.7 g/dL (32.0-36.0); MEAN CORPUSCULAR VOLUME 91.8 fL (81.0-99.0); MONOCYTES # (AUTO) 0.7 10^3/uL (0.0-1.0); NEUTROPHILS # (AUTO) 5.3 10^3/uL (1.5-6.6); PLT - PLATELET COUNT 304 10^3/uL (130-450); RED BLOOD COUNT 3.41 10^6/uL (4.20-5.40); RED CELL DISTRIBUTION WIDTH 14.3 % (12.0-15.0); WHITE BLOOD COUNT 7.9 x10^3/uL (4.8-10.8)
[2020-04-26 16:37] LABS: ALBUMIN 3.8 g/dL (3.2-5.5); CALCIUM 9.4 mg/dL (8.5-10.3); CREATININE 1.7 mg/dL (0.4-1.0); PHOSPHORUS 4.4 mg/dL (2.5-4.6)
[2020-04-26 20:21] LABS: HEMOGLOBIN A1c% 7.4 % (4.27-6.07)
== END 2020-04-26 09:03 | disposition home or self-care (01) ==
LOC: LAB.S 09:02
PROVIDERS: ATTEND Internal Medicine Nephrology
DX: D64.9 Anemia, unspecified (principal); E11.22 Type 2 diabetes mellitus with diabetic chronic kidney disease; N18.4 Chronic kidney disease, stage 4 (severe)
CPT/HCPCS: 36415; 80069; 81599; 83036; 83970; 85025

== ENCOUNTER 2020-05-11 12:00 | Outpatient (CLI) | payer MEDICARE ==
[2020-05-11 15:41] LABS: BASOPHILS # (AUTO) 0.1 10^3/uL (0.0-0.1); BASOPHILS % (AUTO) 0.8 %; EOSINOPHILS # (AUTO) 0.3 10^3/uL (0.0-0.7); HGB - HEMOGLOBIN 9.4 g/dL (12.0-16.0); LYMPHOCYTES # (AUTO) 1.6 10^3/uL (1.5-3.5); LYMPHOCYTES % (AUTO) 18.2 %; MEAN CORPUSCULAR HEMOGLOBIN 29.1 pg (27.0-31.0); MEAN CORPUSCULAR HGB CONC 31.4 g/dL (32.0-36.0); MEAN CORPUSCULAR VOLUME 92.6 fL (81.0-99.0); MEAN PLATELET VOLUME 10.9 fL (7.9-10.8); MONOCYTES # (AUTO) 0.7 10^3/uL (0.0-1.0); MONOCYTES % (AUTO) 7.8 %; NEUTROPHILS % (AUTO) 69.8 %; PLT - PLATELET COUNT 308 10^3/uL (130-450); RED BLOOD COUNT 3.23 10^6/uL (4.20-5.40); RED CELL DISTRIBUTION WIDTH 14.3 % (12.0-15.0); WHITE BLOOD COUNT 8.6 x10^3/uL (4.8-10.8)
[2020-05-11 15:54] LABS: ALBUMIN 3.7 g/dL (3.2-5.5); CALCIUM 9.9 mg/dL (8.5-10.3); CREATININE 1.7 mg/dL (0.4-1.0); PHOSPHORUS 3.9 mg/dL (2.5-4.6)
== END 2020-05-11 12:01 | disposition home or self-care (01) ==
LOC: LAB.S 12:00
PROVIDERS: ATTEND Emergency Medicine
DX: D64.9 Anemia, unspecified (principal); N18.4 Chronic kidney disease, stage 4 (severe)
CPT/HCPCS: 36415; 80069; 83970; 85025

== ENCOUNTER 2020-05-29 11:54 | Outpatient (CLI) | payer MEDICARE ==
[2020-05-29 14:38] LABS: BASOPHILS # (AUTO) 0.1 10^3/uL (0.0-0.1); BASOPHILS % (AUTO) 1.1 %; EOSINOPHILS # (AUTO) 0.2 10^3/uL (0.0-0.7); EOSINOPHILS % (AUTO) 1.8 %; HGB - HEMOGLOBIN 9.1 g/dL (12.0-16.0); LYMPHOCYTES # (AUTO) 1.4 10^3/uL (1.5-3.5); LYMPHOCYTES % (AUTO) 14.8 %; MEAN CORPUSCULAR HEMOGLOBIN 29.8 pg (27.0-31.0); MEAN CORPUSCULAR HGB CONC 31.5 g/dL (32.0-36.0); MEAN CORPUSCULAR VOLUME 94.8 fL (81.0-99.0); MEAN PLATELET VOLUME 10.8 fL (7.9-10.8); MONOCYTES # (AUTO) 0.9 10^3/uL (0.0-1.0); MONOCYTES % (AUTO) 8.7 %; NEUTROPHILS # (AUTO) 7.1 10^3/uL (1.5-6.6); NEUTROPHILS % (AUTO) 73.2 %; PLT - PLATELET COUNT 300 10^3/uL (130-450); RED BLOOD COUNT 3.05 10^6/uL (4.20-5.40); RED CELL DISTRIBUTION WIDTH 13.6 % (12.0-15.0); WHITE BLOOD COUNT 9.7 x10^3/uL (4.8-10.8)
[2020-05-29 15:35] LABS: CREATININE 1.7 mg/dL (0.4-1.0)
[2020-05-29 15:36] LABS: ALBUMIN 3.7 g/dL (3.2-5.5); CALCIUM 9.2 mg/dL (8.5-10.3); CREATININE 1.7 mg/dL (0.4-1.0); PHOSPHORUS 3.4 mg/dL (2.5-4.6)
== END 2020-05-29 11:55 | disposition home or self-care (01) ==
LOC: LAB.S 11:54
PROVIDERS: ATTEND Emergency Medicine
DX: D64.9 Anemia, unspecified (principal); N18.4 Chronic kidney disease, stage 4 (severe)
CPT/HCPCS: 36415; 80069; 82565; 83970; 85025

== ENCOUNTER 2020-06-05 11:36 | Outpatient (CLI) | payer MEDICARE ==
--- NOTE | 2020-06-05 17:09 | XRAY Report ---
PROCEDURE: Knee 4 View BILAT INDICATIONS: OSTEOARTHRITIS OF L KNEE TECHNIQUE: 4 views of each knee were acquired. COMPARISON: 12/21/2019. FINDINGS: Bones: No fractures or dislocations. There is moderate joint space narrowing in the medial compartm ents bilaterally with associated subchondral sclerosis. Findings appear similar to slightly increased compared to the prior study. There is mild tricompartmental osteophytosis bilaterally. Soft tissues: There are bilateral small joint effusions. There are scattered vascular calcifications . IMPRESSION: 1. Bilateral moderate osteoarthritic changes in the medial compartments appear similar to slightly in creased compared to the prior study. 2. Bilateral small knee joint effusions. Reviewed by: Kennedy Englsih MD on 06/05/2020 5:08 PM PST Approved by: Kennedy English MD on 06/05/2020 5:08 PM PST Station ID: [id number]
== END 2020-06-05 23:59 | disposition home or self-care (01) ==
LOC: DI.N 11:36
PROVIDERS: ATTEND Orthopaedic Surgery
DX: M17.0 Bilateral primary osteoarthritis of knee (principal)

== ENCOUNTER 2020-06-12 15:07 | Outpatient (CLI) | payer MEDICARE ==
[2020-06-12 20:04] LABS: BASOPHILS # (AUTO) 0.1 10^3/uL (0.0-0.1); BASOPHILS % (AUTO) 1.3 %; EOSINOPHILS # (AUTO) 0.2 10^3/uL (0.0-0.7); EOSINOPHILS % (AUTO) 2.3 %; LYMPHOCYTES # (AUTO) 1.8 10^3/uL (1.5-3.5); LYMPHOCYTES % (AUTO) 17.6 %; MEAN CORPUSCULAR HEMOGLOBIN 29.9 pg (27.0-31.0); MEAN CORPUSCULAR HGB CONC 31.6 g/dL (32.0-36.0); MEAN CORPUSCULAR VOLUME 94.7 fL (81.0-99.0); MONOCYTES # (AUTO) 0.8 10^3/uL (0.0-1.0); MONOCYTES % (AUTO) 8.4 %; NEUTROPHILS % (AUTO) 69.9 %; PLT - PLATELET COUNT 279 10^3/uL (130-450); RED BLOOD COUNT 3.01 10^6/uL (4.20-5.40); RED CELL DISTRIBUTION WIDTH 13.3 % (12.0-15.0)
[2020-06-12 20:15] LABS: CREATININE 1.8 mg/dL (0.4-1.0)
== END 2020-06-12 15:08 | disposition home or self-care (01) ==
LOC: LAB.S 15:07
PROVIDERS: ATTEND Internal Medicine Nephrology
DX: D64.9 Anemia, unspecified (principal); N18.4 Chronic kidney disease, stage 4 (severe)
CPT/HCPCS: 36415; 82565; 85025

== ENCOUNTER 2020-06-22 11:32 | Outpatient (CLI) | payer MEDICARE ==
--- NOTE | 2020-06-22 11:48 | XRAY Report ---
PROCEDURE: Finger(s) LT INDICATIONS: LEFT INDEX FINGER LACERATION TECHNIQUE: 3 views of the left second finger(s) acquired. COMPARISON: None FINDINGS: Bones: There is a mildly displaced fracture of the tuft of the second distal phalange. Interphalange joint osteoarthritis incidentally noted. Soft tissues: No suspicious soft tissue calcifications. Soft tissue defect noted in the tip of the l eft finger compatible with laceration. IMPRESSION: Second distal phalange tuft fracture. Reviewed by: Diane Junior MD, PhD on 06/22/2020 11:47 AM PST Approved by: Diane Junior MD, PhD on 06/22/2020 11:47 AM PST Station ID: [id number]
== END 2020-06-22 23:59 | disposition home or self-care (01) ==
LOC: DI.S 11:32
PROVIDERS: ATTEND Physician Assistant Medical
DX: S61.221A Laceration with foreign body of left index finger without damage to nail, initial encounter (principal); S62.631A Displaced fracture of distal phalanx of left index finger, initial encounter for closed fracture

== ENCOUNTER 2020-06-28 15:49 | Outpatient (CLI) | payer MEDICARE ==
[2020-06-28 20:11] LABS: BASOPHILS # (AUTO) 0.2 10^3/uL (0.0-0.1); BASOPHILS % (AUTO) 1.3 %; EOSINOPHILS # (AUTO) 0.4 10^3/uL (0.0-0.7); EOSINOPHILS % (AUTO) 3.6 %; HGB - HEMOGLOBIN 9.8 g/dL (12.0-16.0); LYMPHOCYTES # (AUTO) 1.8 10^3/uL (1.5-3.5); MEAN CORPUSCULAR HEMOGLOBIN 29.5 pg (27.0-31.0); MEAN CORPUSCULAR HGB CONC 31.1 g/dL (32.0-36.0); MEAN CORPUSCULAR VOLUME 94.9 fL (81.0-99.0); MEAN PLATELET VOLUME 10.8 fL (7.9-10.8); MONOCYTES % (AUTO) 8.6 %; NEUTROPHILS # (AUTO) 8.4 10^3/uL (1.5-6.6); NEUTROPHILS % (AUTO) 71.1 %; PLT - PLATELET COUNT 315 10^3/uL (130-450); RED BLOOD COUNT 3.32 10^6/uL (4.20-5.40); RED CELL DISTRIBUTION WIDTH 12.7 % (12.0-15.0); WHITE BLOOD COUNT 11.8 x10^3/uL (4.8-10.8)
[2020-06-28 20:25] LABS: ALBUMIN 3.8 g/dL (3.2-5.5); ALBUMIN/GLOBULIN RATIO 1.2 (1.0-2.2); BILIRUBIN,TOTAL 0.6 mg/dL (0.2-1.0); CALCIUM 9.4 mg/dL (8.5-10.3); CREATININE 1.6 mg/dL (0.4-1.0); TOTAL PROTEIN 6.9 g/dL (6.7-8.2)
[2020-06-29 10:24] LABS: HEMOGLOBIN A1c% 5.8 % (4.27-6.07)
== END 2020-06-28 15:50 | disposition home or self-care (01) ==
LOC: LAB.S 15:49
PROVIDERS: ATTEND Internal Medicine Nephrology
DX: I13.10 Hypertensive heart and chronic kidney disease without heart failure, with stage 1 through stage 4 chronic kidney disease, or unspecified chronic kidney disease (principal); I25.10 Atherosclerotic heart disease of native coronary artery without angina pectoris; E11.22 Type 2 diabetes mellitus with diabetic chronic kidney disease; D63.1 Anemia in chronic kidney disease; I38 Endocarditis, valve unspecified; E78.5 Hyperlipidemia, unspecified; N18.4 Chronic kidney disease, stage 4 (severe)
CPT/HCPCS: 36415; 80053; 80069; 82565; 83036; 83970; 85025

== ENCOUNTER 2020-07-13 17:06 | Outpatient (CLI) | payer MEDICARE | END 2020-07-13 17:07 | disposition home or self-care (01) | LOC: COV 17:06 | PROVIDERS: ATTEND Orthopaedic Surgery | DX: Z01.812 Encounter for preprocedural laboratory examination (principal); Z20.828 Contact with and (suspected) exposure to other viral communicable diseases; M17.12 Unilateral primary osteoarthritis, left knee ==

== ENCOUNTER 2020-07-19 08:48 | Day surgery (SDC) | payer MEDICARE ==
[~2020-07-19 08:48] MED LIST: ACETAMINOPHEN 1,000 MG/100 ML 0 ML IV ONE; CELECOXIB 100 MG CAPSULE PO ONE; DEXAMETHASONE 10 MG/ML VIAL ONE; ceFAZolin 2 GM/50 ML 2 GM/50 ML BAG IV ONE
[2020-07-19] MEDS ORDERED: LACTATED RINGERS 1,000 ML IV ONE ×2 (09:23→15:59)
--- NOTE | 2020-07-19 10:57 | ANESTHESIA ---
Pre-Anesthesia VS, & Labs - Diagnosis Left knee OA - Procedure L Total Knee Arthroplasty Vital Signs: Temp Pulse Resp BP Pulse Ox 36.6 C 49 L 12 151/45 H 98 07/19/20 09:23 07/19/20 09:23 07/19/20 09:23 07/19/20 09:23 07/19/20 09:23 Height: 5 ft 1 in Weight (kg): 63.1 kg Body Mass Index: 26.2 BMI Classification: Overweight - NPO Last Fluid Intake: protein drink 714 - Is Patient ?: No - Lab Results Current Lab Results: Laboratory Tests 07/19/20 09:13: POC Whole Bld Glucose 260 H Lab results reviewed: Yes Home Medications and Allergies Home Medications: Ambulatory Orders Epoetin [Procrit] 5,000 unit SUBQ OAW 07/11/20 Labetalol HCl 400 mg PO BID 07/11/20 Oxycodone HCl [Roxicodone] 5 mg PO Q6HR PRN 07/11/20 Tramadol HCl [Ultram] 50 mg PO Q6HR PRN 07/11/20 Aspirin Chewable [St Yoseph Aspirin] 81 mg PO DAILY 11/29/13 Insulin Glargine [Lantus Solostar] 30 units SUBQ QPM 11/29/13 Insulin Glulisine [Apidra] 10 - 20 unit SQ TIDWM 08/04/14 Albuterol Sulf [Ventolin Hfa Inhaler] 1 - 2 puffs INH Q4HR PRN 01/05/18 Cholecalciferol [Vitamin D3] 5,000 unit PO DAILY 01/05/18 Cyanocobalamin (Vitamin B-12) [Vitamin B-12] 2,500 mcg PO DAILY 01/05/18 Doxazosin Mesylate 2 mg PO BID 01/05/18 Furosemide 20 mg PO DAILY PRN 01/05/18 Epoetin [Procrit] 5,000 unit SUBQ OAW 07/11/20 Labetalol HCl 400 mg PO BID 07/11/20 Oxycodone HCl [Roxicodone] 5 mg PO Q6HR PRN 07/11/20 Tramadol HCl [Ultram] 50 mg PO Q6HR PRN 07/11/20 Allergies/Adverse Reactions: Allergies Allergy/AdvReac Type Severity Reaction Status Date / Time adhesive Allergy Rash Verified 07/11/20 10:29 metal AdvReac Itching Uncoded 07/11/20 10:29 Anes History & Medical History - Anesthetic History Anesthesia Complications: reports: No previous complications Family history of Anesthesia Complications: Denies Family history of Malignant Hyperthermia: Denies - Medical History Cardiovascular: reports: Hypertension, Valve disorder Pulmonary: reports: Asthma, Tuberculosis Gastrointestinal: reports: GERD Urinary: reports: Kidney stones, Other Musculoskeletal: reports: Osteoarthritis, Chronic back pain Endocrine/Autoimmune: reports: Type 2 diabetes Skin: reports: None Smoking Status: Never smoker - Surgical History General: Cholecystectomy, Appendectomy Eyes Ears Nose Throat (EENT): Cataracts Gynecologic: Hysterectomy Exam General: Alert, Oriented x3, Cooperative Dental: Dentures full Upper, Dentures full Lower Mouth Openin Fingerbreadth Neck Mobility: Normal Mallampati classification: I Thyromental Distance: 4-6 cm Respiratory: Lungs clear, Normal breath sounds, No respiratory distress Cardiovascular: Regular rate (60) Neurological: Normal speech Mental/Cognitive Status: Alert/Oriented X3, Normal for patient Cognitive Status: Within normal limits Plan Anesthesia Type: Spinal, Adductor Block Regional Block: Per Surgeon's request for Post Op pain control Consent for Procedure(s) Verified and Reviewed: Yes Code Status: Attempt Resuscitation ASA classification: 2-Mild systemic disease Is this case an emergency?: No
[2020-07-19] MEDS ORDERED: NALOXONE 0.4 MG/ML VIAL IVP PRN (11:56)
[2020-07-19] MEDS ORDERED: ONDANSETRON 4 MG/2 ML VIAL IVP PRN ×2 (11:56→15:51)
[2020-07-19] MEDS ORDERED: HYDROmorphone 0.5 MG/0.5 ML SYRINGE IVP PRN (11:56)
[2020-07-19] MEDS ORDERED: ePHEDrine 50 MG/ML VIAL IVP PRN (11:56)
[2020-07-19] MEDS ORDERED: ATROPINE ABBOJECT 1 MG/10 ML SYRINGE IVP PRN (11:56)
[2020-07-19] MEDS ORDERED: fentaNYL 100 MCG/2 ML VIAL IVP PRN (11:56)
[2020-07-19] MEDS ORDERED: MORPHINE 2 MG/ML CARPUJECT IVP PRN (11:56)
[2020-07-19] MEDS ORDERED: METOCLOPRAMIDE 10 MG/2 ML VIAL IVP PRN (11:56)
[2020-07-19] MEDS ORDERED: LACTATED RINGERS 1,000 ML IV SCH (12:00)
[2020-07-19] MEDS ORDERED: fentaNYL 100 MCG/2 ML VIAL ONE (12:05)
[2020-07-19] MEDS ORDERED: MIDAZOLAM 2 MG/2 ML VIAL ONE (12:05)
[2020-07-19] MEDS ORDERED: PROPOFOL 500 MG/50 ML 500 MG/50 ML VIAL ONE (12:14)
[2020-07-19] MEDS ORDERED: ROPIVACAINE 0.5% PF 20 ML AMPULE ONE (12:17)
[2020-07-19] MEDS ORDERED: DEXAMETHASONE 4 MG/ML VIAL ONE (12:18)
[2020-07-19] MEDS ORDERED: VANCOMYCIN 1 GM VIAL ONE (12:39)
[2020-07-19] MEDS ORDERED: ONDANSETRON 4 MG/2 ML VIAL ONE (12:41)
[2020-07-19] MEDS ORDERED: TRANEXAMIC ACID 1,000 MG/10 ML VIAL ONE ×2 (13:03)
[2020-07-19] MEDS ORDERED: BUPIVACAINE 0.5% PF 30 ML VIAL ONE (13:35)
[2020-07-19] MEDS ORDERED: BUPIVACAINE 0.5% PF 30 ML VIAL INFIL ONE (14:55)
[2020-07-19] MEDS ORDERED: PROPOFOL 200 MG/20 ML VIAL IVP ONE (15:02)
--- NOTE | 2020-07-19 15:38 | OPERATIVE REPORT ---
Operative Report - General Procedure Date: 07/19/20 Planned Procedure: Left total knee arthroplasty Pre-Op Diagnosis: Varus osteoarthritis left knee Procedure Performed: Left total knee arthroplasty using cemented components: [employer] Oxinium #4 femoral component, #4 tibial baseplate, 9 mm deep dish cruciate substituting articular insert, 26 mm biconvex patellar polyethylene component - Procedure Note Anesthesia Provider: Adrianna Preciado CRNA Indications: This is a 84-year-old woman with chronic pain to her left knee, generalized but somewhat more medial. She has weightbearing pain with activity including activities of daily living. Her pain precludes her from doing walking and outdoor activities. She is tried nonsurgical treatment and pain persist. She had abnormal radiographs with [id number] to the medial compartment, varus deformity but good stability. Her motion to the left knee was reduced but had greater than 115 degrees flexion and the very mild flexion contracture, 5 degrees.She had preoperative medical evaluation with no contraindication to surgery Findings: There was complete loss of articular cartilage to the medial compartment left knee with eburnated bone surface and peripheral osteophytes. The lateral compartment showed partial thickness cartilage loss to most of the compartment but they were areas of full-thickness cartilage breakdown as well but were focal. The patella showed decreased articular cartilage and osteophytes. Her bone quality was decreased and most suitable for cementing. Complications: None noted - Other Other Information/Narrative: The patient was brought to the operating room and was placed in a supine pos ition. She was given a adductor canal block by anesthesia. A pneumatic tourniquet was applied to the proximal left thigh over cast padding. This was a conical shaped Horace thigh tourniquet that was sterile. A bump was placed on the operating room table to facilitate knee flexion of the left knee during surgery. A timeout procedure was performed by the entire operating room team and all were in agreement. A midline longitudinal incision was made with the knee in flexion. A medial parapatellar arthrotomy was made. The anterior horn of medial and lateral menisci were released and part of patellar fat pad was excised. The knee was flexed and the patella was dislocated laterally. A drill hole was made in the intramedullary notch with a 9.5 mm drill. Osteophytes about the proximal tibia and femur had been removed with a rondure. The distal femoral cutting guide was aligned parallel to the posterior condyles. The intramedullary giorgio and guide was advanced and the distal femoral guide was stabilized with half pins. The distal 5 degrees valgus cut was made through the distal femoral guide. Next the extra medullary tibial guide was assembled and applied and aligned to the mechanical axis in both sagittal and coronal planes. Tibial referencing was done to allow 3 mm of bone from the most affected side and 10 mm from the least affected side. The tibial guide was stabilized with half pins. Retractors were placed medially and laterally to protect the collateral ligaments and a retractor was placed directly against the posterior bone to sublux the tibia anteriorly. An oscillating saw was used to make the tibial proximal cut. The tibial block was removed as a single piece and the menisci were removed as well. The extension gap was assessed with a extension block spacer using a 10 mm spacer and this was found to fit well as well as the 9 mm spacer block with the knee in 90 degrees of flexion. Next the femoral positioning guide was applied and aligned to the epicondylar axis and Xin line. This was secured in place with approximately 3 degrees of external rotation. The size of the femur at the anterior lateral trochlea was a #4. Drill holes were made in the 5 and 1 #4 cutting block was inserted and secured. The 5 cuts were made to the captured block using oscillating saw. The flexion gap was assessed with the 10 mm spacer and was found to fit well. The patella was then prepared. A biconvex patellar reamer was used. The tibial trial #3 was then applied to the tibia and aligned to the mechanical axis. The punch fin was utilized. Trial reduction was performed with the femoral and tibial components in place. Notch resection was then through the trial component. Pulsatile lavage was performed. A tourniquet was applied during the cementing process. The components were inserted sequentially with gentamicin antibiotic cement: Tibia, femur and lastly patellar component. Excess cement was removed and the knee was placed in extension during the hardening. Sterile Dilute Betadine irrigation was performed. The knee had full range of motion, good patellar tracking. There was good stability of the knee in full extension mid flexion and 90 degrees of flexion. There was good alignment of the left knee. The tourniquet had been deflated and had been in place for 23 minutes. Hemostasis was achieved with electrocautery. The deep closure was performed with #2 Ethibond proximal and distal to the patella with the knee in 40 degrees of flexion. O V-Loc suture was then used to close the arthrotomy incision. 2-0 Vicryl was used to close the subcutaneous tissue. 3-0 Monocryl was used to do a subcuticular skin closure. Dermabond was applied to the skin incision. After the Dermabond had hardened, a silver impregnated dressing was applied. She tolerated the procedure well and received 2 g of Ancef intravenously and 2 g of tranxamic acid. Vancomycin powder, 1 g was placed before arthrotomy closure. A physician assistant cook was utilized during the procedure to facilitate retraction and protection of vital structures. The retraction was necessary for exposure and application of femoral, tibial and patellar jigs as well as during cementation.
[2020-07-19] MEDS ORDERED: SODIUM CHLORIDE FLUSH 0.9% 10 ML SYRINGE IVP PRN (15:51)
[2020-07-19] MEDS ORDERED: oxyCODONE 5 MG TABLET PO PRN (15:51)
[2020-07-19] MEDS ORDERED: traMADol 50 MG TABLET PO PRN (16:07)
--- NOTE | 2020-07-19 16:30 | XRAY Report ---
PROCEDURE: Knee 2 View LT INDICATIONS: Post-op Left TECHNIQUE: 2 views of the left knee(s) were acquired. COMPARISON: None. FINDINGS: Bones: No fractures or dislocations. No suspicious bony lesions. Soft tissues: No joint effusion. No suspicious soft tissue calcifications. IMPRESSION: Normal alignment after left total knee arthroplasty. Reviewed by: Carlos Mercado MD on 07/19/2020 4:29 PM PST Approved by: Carlos Mercado MD on 07/19/2020 4:29 PM [facility] Station ID: [id number]
[2020-07-19] MEDS: SODIUM CHLORIDE FLUSH 0.9% 10 ML SYRINGE IVP SCH ×2 (16:45→23:46)
--- NOTE | 2020-07-19 17:17 | ANESTHESIA POST OP EVALUATION ---
Anesthesia Post Eval - Post Anesthesia Eval Vitals: Last Vital Signs Temp 36.4 C L 07/19/20 16:22 Pulse 45 L 07/19/20 16:22 Resp 16 07/19/20 16:22 BP 173/47 H 07/19/20 16:22 Pulse Ox 97 07/19/20 16:22 CV Function Including HR & BP: positive: Stable Pain Control: positive: Satisfactory Nausea & Vomiting: positive: Negative Mental Status: positive: Baseline Respiratory Status: Airway Patent Hydration Status: Satisfactory Anesthesia Complications: positive: None
[2020-07-19] MEDS: INSULIN ASPART 300 UNIT/3 ML PEN SUBQ SCH ×2 (17:44→22:12)
[2020-07-19] MEDS ORDERED: ACETAMINOPHEN 325 MG TABLET PO SCH (18:00)
[2020-07-19] MEDS: LABETALOL 100 MG TABLET PO SCH (18:46)
[2020-07-19] MEDS: ACETAMINOPHEN 500 MG TABLET PO SCH ×2 (19:04→23:46)
[2020-07-19 19:11] LABS: HEMOGLOBIN A1c% 6.3 % (4.27-6.07)
[2020-07-19] MEDS ORDERED: LABETALOL 100 MG TABLET PO SCH (21:00)
[2020-07-19] MEDS ORDERED: INSULIN GLARGINE 300 UNIT/3 ML PEN SUBQ SCH (21:00)
[2020-07-19] MEDS: ASPIRIN EC 81 MG TABLET PO SCH (22:09)
[2020-07-19] MEDS: DOXAZOSIN 1 MG TABLET PO SCH (22:09)
[2020-07-19] MEDS: ethyl alcohoL 62% SWAB AMPULE NAS SCH (22:09)
[2020-07-19] MEDS: ceFAZolin 2 GM/50 ML 2 GM/50 ML BAG IV SCH (22:12)
[2020-07-19] MEDS ORDERED: hydrALAZINE INJ 20 MG/ML VIAL IVP PRN (22:49)
[2020-07-19] MEDS: oxyCODONE 5 MG TABLET PO PRN (23:45)
[2020-07-20] MEDS ORDERED: MORPHINE 2 MG/ML CARPUJECT IVP PRN (01:19)
[2020-07-20] MEDS: ACETAMINOPHEN 500 MG TABLET PO SCH ×2 (05:37→12:25)
[2020-07-20] MEDS: ceFAZolin 2 GM/50 ML 2 GM/50 ML BAG IV SCH (05:37)
[2020-07-20] MEDS ORDERED: INSULIN GLARGINE 300 UNIT/3 ML PEN SUBQ SCH (08:00)
[2020-07-20] MEDS: LABETALOL 100 MG TABLET PO SCH (08:15)
[2020-07-20] MEDS: oxyCODONE 5 MG TABLET PO PRN (08:17)
[2020-07-20] MEDS: ASPIRIN EC 81 MG TABLET PO SCH (08:17)
[2020-07-20] MEDS: ethyl alcohoL 62% SWAB AMPULE NAS SCH (08:19)
[2020-07-20] MEDS: SODIUM CHLORIDE FLUSH 0.9% 10 ML SYRINGE IVP SCH (08:19)
[2020-07-20] MEDS: INSULIN ASPART 300 UNIT/3 ML PEN SUBQ SCH ×2 (08:25→11:48)
[2020-07-20] MEDS ORDERED: CHOLECALCIFEROL 5,000 UNIT CAPSULE PO SCH (09:00)
[2020-07-20] MEDS ORDERED: CYANOCOBALAMIN 500 MCG TABLET PO SCH (09:00)
[2020-07-20] MEDS: DOXAZOSIN 1 MG TABLET PO SCH (11:02)
--- NOTE | 2020-07-20 12:41 | PROVIDER PROGRESS NOTE ---
Subjective - General Procedure Date: 07/19/20 Post Op Days: 1 Procedure Performed: Left total knee arthroplasty - Review of Systems Wound/Incisions: positive: Dressing dry and intact General: positive: No symptoms Cardiovascular: positive: No symptoms Gastrointestinal: positive: No symptoms - Other Other Information/Narrative: Patient seen earlier this morning. She was alert and oriented. She was in no acute distress. Her pain is well controlled. She did have pain much earlier in the night and received a dose of morphine. Presently her pain is under excellent control. Her dressing is dry and intact to left knee. She can easily do a straight leg raise. There is no neurologic or vascular deficit to the left leg. She should continue with physical therapy and she is being monitored by our hospitalist, she does have diabetes. Would like to keep her glucose as close as possible to 150 or less. If she continues to meet all of her goals, she should be discharged today with a follow-up in the clinic for next Friday.She should be on aspirin 81 mg twice daily for 6 weeks to prevent deep venous thrombosis. She has oxycodone 5 mg as needed for pain when she is discharged. She also can use Tylenol for pain. And she has physical therapy appointments after hospital discharge as well closer to home. Objective - Patient Data Vital Signs: Vital Signs x48h Temp Pulse Pulse Resp BP BP Pulse Ox 07/20/20 11:01 52 L 07/20/20 10:30 49 L 141/47 H 07/20/20 10:29 46 L 151/43 H 07/20/20 09:50 48 L 146/45 H 07/20/20 08:40 53 L 153/44 H 07/20/20 08:09 36.5 C 56 L 14 133/39 H 98 07/20/20 05:42 36.6 C 59 L 16 137/51 H 98 Weight: Weight 07/18/20 07/19/20 07/20/20 23:59 23:59 23:59 Weight (kg) 63.1 kg Intake & Output: Intake and Output Totals x24h 07/18/20 07/19/20 07/20/20 23:59 23:59 23:59 Intake Total 100 350 Output Total 850 750 Balance -750 -400 - Lab Results Other Lab Results: Lab Results x24hrs 07/20/20 07/20/20 07/19/20 Range/Units 11:28 07:21 21:05 POC Whole Bld Glucose 179 H 190 H 308 H (70 - 100) mg/dL Estimat Average Glucose (70-100) mg/dL Hemoglobin A1c % (4.27-6.07) % 07/19/20 07/19/20 07/19/20 Range/Units 17:10 16:47 15:59 POC Whole Bld Glucose 210 H 210 H (70 - 100) mg/dL Estimat Average Glucose 134 H (70-100) mg/dL Hemoglobin A1c % 6.3 H (4.27-6.07) % - Imaging Results Radiology Imaging: negative: Other (Satisfactory alignment left total knee arthroplasty) - Current Medications Current Medications: Current Medications Generic Name Dose Route Start Last Admin Trade Name Freq PRN Reason Stop Dose Admin Acetaminophen 1,000 mg 07/19/20 19:00 07/20/20 12:25 Acetaminophen 500 Mg Tablet PO 1,000 mg Q6HR ROBY Administration Alcohol 1 amp 07/19/20 21:00 07/20/20 08:19 Ethyl Alcohol 62% Swab Ampule NELL 1 amp BID ROBY Administration Aspirin 81 mg 07/19/20 21:00 07/20/20 08:17 Aspirin Ec 81 Mg Tablet PO 81 mg BID ROBY Administration Cholecalciferol 5,000 unit 07/20/20 09:00 07/20/20 08:19 Cholecalciferol 5,000 Unit Capsule PO 5,000 unit DAILY ROBY Administration Cyanocobalamin 2,500 mcg 07/20/20 09:00 07/20/20 08:18 Cyanocobalamin 500 Mcg Tablet PO 2,500 mcg DAILY ROBY Administration Doxazosin Mesylate 2 mg 07/19/20 21:00 07/20/20 11:02 Doxazosin 1 Mg Tablet PO 2 mg BID ROBY Administration Hydralazine HCl 10 mg 07/19/20 22:49 07/19/20 23:45 Hydralazine Inj 20 Mg/Ml Vial IVP 10 mg Q6HR PRN Administration Hypertensive Emergency Insulin Aspart 1 - 9 unit 07/19/20 17:00 07/20/20 11:48 Insulin Aspart 300 Unit/3 Ml Pen SUBQ 1 unit 0800,1200,1700,2100 ROBY Administration Protocol Insulin Glargine 30 unit 07/19/20 21:00 07/19/20 22:11 Insulin Glargine 300 Unit/3 Ml Pen SUBQ 30 unit QPM ROBY Administration Labetalol HCl 400 mg 07/19/20 18:40 07/20/20 08:15 Labetalol 100 Mg Tablet PO 400 mg BID ROBY Administration Morphine Sulfate 2 mg 07/20/20 01:19 07/20/20 01:33 Morphine 2 Mg/Ml Carpuject IVP 2 mg Q2HR PRN Administration PAIN Oxycodone HCl 5 mg 07/19/20 16:07 07/20/20 08:17 Oxycodone 5 Mg Tablet PO 5 mg Q6HR PRN Administration PAIN Sodium Chloride 10 ml 07/19/20 17:00 07/20/20 08:19 Sodium Chloride Flush 0.9% 10 Ml Syringe IVP 10 ml 0100,0900,1700 ROBY Administration - Physical Exam Wound/Incisions: positive: Healing well Impression/Plan - Problem List Problem List: Status post left total knee arthroplasty. She is being comanaged with our hospitalist, especially since she has diabetes mellitus. The goal would be to try to keep her blood sugars as close to 150 as possible or less. She is to receive occupational and physical therapy today and if she meets her goals can be discharged to home as anticipated. She has her medications for pain, instructed in 81 mg of aspirin twice daily for deep venous thrombosis prophylaxis and has physical therapy scheduled. She also has a follow-up appointment to our office for next Friday.
[2020-07-20] MEDS ORDERED: HYDROcod/ACETAM 10 MG/325 MG TABLET PO PRN (12:56)
[2020-07-20] MEDS ORDERED: HYDROcod/ACETAM 5/325 MG TABLET PO PRN (12:56)
[2020-07-20 15:52] VITALS: BP 158/61
== END 2020-07-20 16:25 | disposition home or self-care (01) ==
LOC: SDS 08:48 → MS2 16:40 → SDS 07-20 16:25
PROVIDERS: ATTEND Orthopaedic Surgery
DX: M17.12 Unilateral primary osteoarthritis, left knee (principal); E11.22 Type 2 diabetes mellitus with diabetic chronic kidney disease; I12.9 Hypertensive chronic kidney disease with stage 1 through stage 4 chronic kidney disease, or unspecified chronic kidney disease; N18.30 Chronic kidney disease, stage 3 unspecified; Z79.4 Long term (current) use of insulin; I25.10 Atherosclerotic heart disease of native coronary artery without angina pectoris; Z79.82 Long term (current) use of aspirin; E66.3 Overweight; Z68.26 Body mass index [BMI] 26.0-26.9, adult
CPT/HCPCS: 27447; 36415; 73560; 83036; 97161; 97165; 97530; A9270; C1713; J0690; J1815; J3370; J7120

== ENCOUNTER 2020-08-01 14:58 | Outpatient (CLI) | payer MEDICARE ==
[2020-08-01 19:50] LABS: BASOPHILS # (AUTO) 0.2 10^3/uL (0.0-0.1); BASOPHILS % (AUTO) 1.2 %; EOSINOPHILS # (AUTO) 0.4 10^3/uL (0.0-0.7); EOSINOPHILS % (AUTO) 2.3 %; HGB - HEMOGLOBIN 8.2 g/dL (12.0-16.0); LYMPHOCYTES # (AUTO) 1.5 10^3/uL (1.5-3.5); LYMPHOCYTES % (AUTO) 9.6 %; MEAN CORPUSCULAR HEMOGLOBIN 29.1 pg (27.0-31.0); MEAN CORPUSCULAR HGB CONC 30.5 g/dL (32.0-36.0); MEAN CORPUSCULAR VOLUME 95.4 fL (81.0-99.0); MEAN PLATELET VOLUME 10.4 fL (7.9-10.8); MONOCYTES # (AUTO) 0.8 10^3/uL (0.0-1.0); MONOCYTES % (AUTO) 4.7 %; NEUTROPHILS % (AUTO) 81.6 %; PLT - PLATELET COUNT 465 10^3/uL (130-450); RED BLOOD COUNT 2.82 10^6/uL (4.20-5.40); RED CELL DISTRIBUTION WIDTH 12.1 % (12.0-15.0); WHITE BLOOD COUNT 15.9 x10^3/uL (4.8-10.8)
== END 2020-08-01 14:59 | disposition home or self-care (01) ==
LOC: LAB.S 14:58
PROVIDERS: ATTEND Emergency Medicine
DX: D64.9 Anemia, unspecified (principal); N18.4 Chronic kidney disease, stage 4 (severe)
CPT/HCPCS: 36415; 85025

== ENCOUNTER 2020-08-16 13:21 | Outpatient (CLI) | payer MEDICARE ==
[2020-08-16 20:15] LABS: BASOPHILS # (AUTO) 0.2 10^3/uL (0.0-0.1); BASOPHILS % (AUTO) 1.2 %; EOSINOPHILS % (AUTO) 7.1 %; HGB - HEMOGLOBIN 9.3 g/dL (12.0-16.0); LYMPHOCYTES # (AUTO) 1.7 10^3/uL (1.5-3.5); LYMPHOCYTES % (AUTO) 12.5 %; MEAN CORPUSCULAR HEMOGLOBIN 28.5 pg (27.0-31.0); MEAN CORPUSCULAR VOLUME 95.1 fL (81.0-99.0); MEAN PLATELET VOLUME 10.6 fL (7.9-10.8); MONOCYTES # (AUTO) 0.9 10^3/uL (0.0-1.0); MONOCYTES % (AUTO) 6.7 %; NEUTROPHILS # (AUTO) 9.9 10^3/uL (1.5-6.6); NEUTROPHILS % (AUTO) 72.2 %; PLT - PLATELET COUNT 361 10^3/uL (130-450); RED BLOOD COUNT 3.26 10^6/uL (4.20-5.40); RED CELL DISTRIBUTION WIDTH 12.8 % (12.0-15.0); WHITE BLOOD COUNT 13.7 x10^3/uL (4.8-10.8)
[2020-08-16 20:38] LABS: CREATININE 2.1 mg/dL (0.4-1.0)
== END 2020-08-16 13:22 | disposition home or self-care (01) ==
LOC: LAB.S 13:21
PROVIDERS: ATTEND Emergency Medicine
DX: D64.9 Anemia, unspecified (principal)
CPT/HCPCS: 36415; 82565; 85025

== ENCOUNTER 2020-08-30 11:34 | Outpatient (CLI) | payer MEDICARE ==
[2020-08-30 15:38] LABS: BASOPHILS # (AUTO) 0.2 10^3/uL (0.0-0.1); BASOPHILS % (AUTO) 1.6 %; EOSINOPHILS # (AUTO) 0.4 10^3/uL (0.0-0.7); EOSINOPHILS % (AUTO) 3.9 %; HGB - HEMOGLOBIN 9.6 g/dL (12.0-16.0); LYMPHOCYTES # (AUTO) 1.7 10^3/uL (1.5-3.5); LYMPHOCYTES % (AUTO) 18.3 %; MEAN CORPUSCULAR HEMOGLOBIN 28.7 pg (27.0-31.0); MEAN CORPUSCULAR VOLUME 92.8 fL (81.0-99.0); MEAN PLATELET VOLUME 10.9 fL (7.9-10.8); MONOCYTES # (AUTO) 0.9 10^3/uL (0.0-1.0); MONOCYTES % (AUTO) 9.7 %; NEUTROPHILS # (AUTO) 6.2 10^3/uL (1.5-6.6); NEUTROPHILS % (AUTO) 66.1 %; PLT - PLATELET COUNT 347 10^3/uL (130-450); RED BLOOD COUNT 3.34 10^6/uL (4.20-5.40); RED CELL DISTRIBUTION WIDTH 13.6 % (12.0-15.0); WHITE BLOOD COUNT 9.4 x10^3/uL (4.8-10.8)
[2020-08-30 15:54] LABS: CREATININE 1.6 mg/dL (0.4-1.0)
== END 2020-08-30 11:35 | disposition home or self-care (01) ==
LOC: LAB.S 11:34
PROVIDERS: ATTEND Emergency Medicine
DX: D64.9 Anemia, unspecified (principal)
CPT/HCPCS: 36415; 82565; 85025

== ENCOUNTER 2020-09-01 18:36 | Outpatient (CLI) | payer MEDICARE ==
--- NOTE | 2020-09-01 16:03 | XRAY Report ---
PROCEDURE: Knee Standing LT INDICATIONS: BILATERAL KNEE PAIN TECHNIQUE: 4 views of the left knee. One view of the right knee. COMPARISON: None. FINDINGS: Bones: No acute fractures or dislocations. No suspicious bony lesions. Left knee other plicae has b een performed. Moderate right knee tricompartment periarticular osteophyte formation. Moderate right knee medial compartment narrowing. Soft tissues: No knee joint effusions. No suspicious soft tissue calcification. IMPRESSION: 1. Left knee arthroplasty. 2. Right knee osteoarthritis with medial compartment narrowing. Reviewed by: Christine Daly MD on 09/01/2020 4:01 PM PST Approved by: Christine Daly MD on 09/01/2020 4:01 PM PST Station ID: [id number]
== END 2020-09-01 23:59 | disposition home or self-care (01) ==
LOC: DI.N 18:36
PROVIDERS: ATTEND Physician Assistant
DX: M17.11 Unilateral primary osteoarthritis, right knee (principal); Z96.652 Presence of left artificial knee joint

== ENCOUNTER 2020-09-14 12:44 | Outpatient (CLI) | payer MEDICARE ==
[2020-09-14 14:41] LABS: BASOPHILS # (AUTO) 0.1 10^3/uL (0.0-0.1); BASOPHILS % (AUTO) 1.5 %; EOSINOPHILS # (AUTO) 0.3 10^3/uL (0.0-0.7); EOSINOPHILS % (AUTO) 3.1 %; HCT - HEMATOCRIT 29.7 % (37.0-47.0); LYMPHOCYTES # (AUTO) 1.5 10^3/uL (1.5-3.5); LYMPHOCYTES % (AUTO) 17.5 %; MEAN CORPUSCULAR HEMOGLOBIN 28.1 pg (27.0-31.0); MEAN CORPUSCULAR HGB CONC 30.3 g/dL (32.0-36.0); MEAN CORPUSCULAR VOLUME 92.8 fL (81.0-99.0); MEAN PLATELET VOLUME 11.1 fL (7.9-10.8); MONOCYTES # (AUTO) 0.8 10^3/uL (0.0-1.0); MONOCYTES % (AUTO) 9.6 %; NEUTROPHILS # (AUTO) 5.9 10^3/uL (1.5-6.6); PLT - PLATELET COUNT 289 10^3/uL (130-450); WHITE BLOOD COUNT 8.6 x10^3/uL (4.8-10.8)
[2020-09-14 15:38] LABS: CREATININE 1.7 mg/dL (0.4-1.0)
== END 2020-09-14 12:45 | disposition home or self-care (01) ==
LOC: LAB.S 12:44
PROVIDERS: ATTEND Emergency Medicine
DX: D63.1 Anemia in chronic kidney disease (principal)
CPT/HCPCS: 36415; 82565; 85025

== ENCOUNTER 2020-09-28 14:33 | Outpatient (CLI) | payer MEDICARE ==
[2020-09-28 20:06] LABS: BASOPHILS # (AUTO) 0.1 10^3/uL (0.0-0.1); BASOPHILS % (AUTO) 1.2 %; EOSINOPHILS # (AUTO) 0.5 10^3/uL (0.0-0.7); EOSINOPHILS % (AUTO) 4.7 %; HGB - HEMOGLOBIN 9.2 g/dL (12.0-16.0); MEAN CORPUSCULAR HEMOGLOBIN 28.3 pg (27.0-31.0); MEAN CORPUSCULAR HGB CONC 30.7 g/dL (32.0-36.0); MEAN CORPUSCULAR VOLUME 92.3 fL (81.0-99.0); MEAN PLATELET VOLUME 11.2 fL (7.9-10.8); MONOCYTES % (AUTO) 8.6 %; NEUTROPHILS # (AUTO) 7.5 10^3/uL (1.5-6.6); NEUTROPHILS % (AUTO) 67.1 %; PLT - PLATELET COUNT 305 10^3/uL (130-450); RED BLOOD COUNT 3.25 10^6/uL (4.20-5.40); RED CELL DISTRIBUTION WIDTH 14.4 % (12.0-15.0); WHITE BLOOD COUNT 11.2 x10^3/uL (4.8-10.8)
[2020-09-28 20:30] LABS: ESTIMATED AVERAGE GLUCOSE 143 mg/dL (70-100); HEMOGLOBIN A1c% 6.6 % (4.27-6.07)
[2020-09-28 20:30] LABS: % IRON SATURATION 23 % (20-50); IRON 54 ug/dL (28-170); TOTAL IRON BINDING CAPACITY 232 ug/dL (250-450); TRANSFERRIN 166 mg/dL (192-382)
[2020-09-28 20:31] LABS: ALBUMIN 3.5 g/dL (3.2-5.5); ALBUMIN/GLOBULIN RATIO 1.1 (1.0-2.2); ALKALINE PHOSPHATASE 52 IU/L (42-121); ALT ALANINE AMINOTRANSFERASE 13 IU/L (10-60); AST ASPARTATE AMINOTRANSFERASE 16 IU/L (10-42); BILIRUBIN,TOTAL 0.6 mg/dL (0.2-1.0); BUN - BLOOD UREA NITROGEN 30 mg/dL (6-20); CALCIUM 9.8 mg/dL (8.5-10.3); CARBON DIOXIDE - CO2 25 mmol/L (21-32); CHLORIDE 101 mmol/L (101-111); CHOL/HDL RATIO 4.1 (<4.4); CHOLESTEROL 218 mg/dL; CREATININE 2.1 mg/dL (0.4-1.0); GFR - MDRD 22 (>89); GLUCOSE 189 mg/dL (70-100); HDL CHOLESTEROL 53 mg/dL; LDL CHOLESTEROL,CALCULATED 131 mg/dL; LDL/HDL RATIO 2.5 (<4.4); POTASSIUM 4.8 mmol/L (3.5-5.0); SODIUM 137 mmol/L (135-145); TOTAL PROTEIN 6.6 g/dL (6.7-8.2); TRIGLYCERIDES 171 mg/dL; VLDL CHOLESTEROL 34 mg/dL
[2020-09-28 20:32] LABS: THYROID STIMULATING HORMONE 0.95 uIU/mL (0.34-5.60)
== END 2020-09-28 14:34 | disposition home or self-care (01) ==
LOC: LAB.S 14:33
PROVIDERS: ATTEND Emergency Medicine
DX: Z00.00 Encounter for general adult medical examination without abnormal findings (principal); I12.9 Hypertensive chronic kidney disease with stage 1 through stage 4 chronic kidney disease, or unspecified chronic kidney disease; E11.22 Type 2 diabetes mellitus with diabetic chronic kidney disease; N18.4 Chronic kidney disease, stage 4 (severe); D63.1 Anemia in chronic kidney disease; I25.10 Atherosclerotic heart disease of native coronary artery without angina pectoris; E78.5 Hyperlipidemia, unspecified
CPT/HCPCS: 36415; 80053; 80061; 82043; 82570; 83036; 83540; 83721; 84443; 84466; 85025

== ENCOUNTER 2020-09-29 08:00 | Outpatient (CLI) | payer MEDICARE ==
[2020-09-29 15:37] LABS: CREATININE,URINE 100.6 mg/dL; MICROALBUM/CREATININE RATIO,UR 382.7 ug/mg (<30.0); MICROALBUMIN,URINE 38.5 mg/dL (0-300.0)
== END 2020-09-29 23:59 | disposition home or self-care (01) ==
LOC: LAB.S 08:00
PROVIDERS: ATTEND Physician Assistant
DX: Z00.00 Encounter for general adult medical examination without abnormal findings (principal); I25.10 Atherosclerotic heart disease of native coronary artery without angina pectoris; E11.22 Type 2 diabetes mellitus with diabetic chronic kidney disease; E78.5 Hyperlipidemia, unspecified; I10 Essential (primary) hypertension; D63.1 Anemia in chronic kidney disease
CPT/HCPCS: 82043; 82570

== ENCOUNTER 2020-10-13 14:05 | Outpatient (CLI) | payer MEDICARE ==
[2020-10-13 20:00] LABS: BASOPHILS # (AUTO) 0.1 10^3/uL (0.0-0.1); BASOPHILS % (AUTO) 1.5 %; EOSINOPHILS # (AUTO) 0.4 10^3/uL (0.0-0.7); EOSINOPHILS % (AUTO) 4.4 %; HCT - HEMATOCRIT 29.9 % (37.0-47.0); HGB - HEMOGLOBIN 9.2 g/dL (12.0-16.0); LYMPHOCYTES # (AUTO) 1.6 10^3/uL (1.5-3.5); LYMPHOCYTES % (AUTO) 18.5 %; MEAN CORPUSCULAR HEMOGLOBIN 28.8 pg (27.0-31.0); MEAN CORPUSCULAR HGB CONC 30.8 g/dL (32.0-36.0); MEAN CORPUSCULAR VOLUME 93.4 fL (81.0-99.0); MEAN PLATELET VOLUME 11.1 fL (7.9-10.8); MONOCYTES # (AUTO) 0.7 10^3/uL (0.0-1.0); MONOCYTES % (AUTO) 8.6 %; NEUTROPHILS # (AUTO) 5.7 10^3/uL (1.5-6.6); NEUTROPHILS % (AUTO) 66.8 %; PLT - PLATELET COUNT 310 10^3/uL (130-450); RED CELL DISTRIBUTION WIDTH 14.6 % (12.0-15.0); WHITE BLOOD COUNT 8.6 x10^3/uL (4.8-10.8)
[2020-10-13 20:09] LABS: CREATININE 2.1 mg/dL (0.4-1.0)
== END 2020-10-13 14:06 | disposition home or self-care (01) ==
LOC: LAB.S 14:05
PROVIDERS: ATTEND Emergency Medicine
DX: D64.9 Anemia, unspecified (principal)
CPT/HCPCS: 36415; 82565; 85025

== ENCOUNTER 2020-10-28 14:53 | Outpatient (CLI) | payer MEDICARE ==
[2020-10-28 17:51] LABS: BASOPHILS # (AUTO) 0.1 10^3/uL (0.0-0.1); BASOPHILS % (AUTO) 1.3 %; EOSINOPHILS # (AUTO) 0.3 10^3/uL (0.0-0.7); EOSINOPHILS % (AUTO) 3.1 %; HGB - HEMOGLOBIN 10.3 g/dL (12.0-16.0); LYMPHOCYTES # (AUTO) 1.8 10^3/uL (1.5-3.5); LYMPHOCYTES % (AUTO) 18.8 %; MEAN CORPUSCULAR HEMOGLOBIN 28.6 pg (27.0-31.0); MEAN CORPUSCULAR HGB CONC 30.3 g/dL (32.0-36.0); MEAN CORPUSCULAR VOLUME 94.4 fL (81.0-99.0); MEAN PLATELET VOLUME 10.9 fL (7.9-10.8); MONOCYTES % (AUTO) 10.3 %; NEUTROPHILS # (AUTO) 6.4 10^3/uL (1.5-6.6); NEUTROPHILS % (AUTO) 66.1 %; PLT - PLATELET COUNT 354 10^3/uL (130-450); RED CELL DISTRIBUTION WIDTH 14.9 % (12.0-15.0); WHITE BLOOD COUNT 9.6 x10^3/uL (4.8-10.8)
[2020-10-28 18:10] LABS: CREATININE 1.9 mg/dL (0.4-1.0)
== END 2020-10-28 14:54 | disposition home or self-care (01) ==
LOC: LAB.S 14:53
PROVIDERS: ATTEND Emergency Medicine
DX: D64.9 Anemia, unspecified (principal)
CPT/HCPCS: 36415; 82565; 85025

== ENCOUNTER 2020-11-13 14:06 | Outpatient (CLI) | payer MEDICARE ==
[2020-11-13 20:22] LABS: BASOPHILS # (AUTO) 0.1 10^3/uL (0.0-0.1); BASOPHILS % (AUTO) 1.3 %; EOSINOPHILS # (AUTO) 0.3 10^3/uL (0.0-0.7); EOSINOPHILS % (AUTO) 2.5 %; HCT - HEMATOCRIT 33.8 % (37.0-47.0); HGB - HEMOGLOBIN 10.5 g/dL (12.0-16.0); LYMPHOCYTES # (AUTO) 1.6 10^3/uL (1.5-3.5); LYMPHOCYTES % (AUTO) 15.1 %; MEAN CORPUSCULAR HEMOGLOBIN 29.6 pg (27.0-31.0); MEAN CORPUSCULAR HGB CONC 31.1 g/dL (32.0-36.0); MEAN CORPUSCULAR VOLUME 95.2 fL (81.0-99.0); MEAN PLATELET VOLUME 11.2 fL (7.9-10.8); MONOCYTES # (AUTO) 0.9 10^3/uL (0.0-1.0); MONOCYTES % (AUTO) 8.6 %; NEUTROPHILS # (AUTO) 7.4 10^3/uL (1.5-6.6); PLT - PLATELET COUNT 279 10^3/uL (130-450); RED BLOOD COUNT 3.55 10^6/uL (4.20-5.40); RED CELL DISTRIBUTION WIDTH 13.8 % (12.0-15.0); WHITE BLOOD COUNT 10.3 x10^3/uL (4.8-10.8)
[2020-11-13 20:32] LABS: CREATININE 1.9 mg/dL (0.4-1.0)
[2020-11-13 20:43] LABS: % IRON SATURATION 25 % (20-50); IRON 56 ug/dL (28-170); TOTAL IRON BINDING CAPACITY 227 ug/dL (250-450); TRANSFERRIN 162 mg/dL (192-382)
== END 2020-11-13 14:07 | disposition home or self-care (01) ==
LOC: LAB.S 14:06
PROVIDERS: ATTEND Emergency Medicine
DX: N18.4 Chronic kidney disease, stage 4 (severe) (principal); D63.1 Anemia in chronic kidney disease
CPT/HCPCS: 36415; 82565; 83540; 84466; 85025

== ENCOUNTER 2020-11-28 10:31 | Outpatient (CLI) | payer MEDICARE ==
[2020-11-28 14:59] LABS: BASOPHILS # (AUTO) 0.1 10^3/uL (0.0-0.1); BASOPHILS % (AUTO) 1.4 %; EOSINOPHILS # (AUTO) 0.3 10^3/uL (0.0-0.7); EOSINOPHILS % (AUTO) 2.9 %; HCT - HEMATOCRIT 32.6 % (37.0-47.0); HGB - HEMOGLOBIN 10.1 g/dL (12.0-16.0); LYMPHOCYTES # (AUTO) 1.1 10^3/uL (1.5-3.5); LYMPHOCYTES % (AUTO) 11.6 %; MEAN CORPUSCULAR HEMOGLOBIN 29.3 pg (27.0-31.0); MEAN CORPUSCULAR VOLUME 94.5 fL (81.0-99.0); MEAN PLATELET VOLUME 11.2 fL (7.9-10.8); MONOCYTES # (AUTO) 0.8 10^3/uL (0.0-1.0); MONOCYTES % (AUTO) 8.1 %; NEUTROPHILS # (AUTO) 7.2 10^3/uL (1.5-6.6); NEUTROPHILS % (AUTO) 75.6 %; PLT - PLATELET COUNT 282 10^3/uL (130-450); RED BLOOD COUNT 3.45 10^6/uL (4.20-5.40); RED CELL DISTRIBUTION WIDTH 13.2 % (12.0-15.0); WHITE BLOOD COUNT 9.6 x10^3/uL (4.8-10.8)
[2020-11-28 15:26] LABS: CREATININE 1.9 mg/dL (0.4-1.0)
== END 2020-11-28 10:32 | disposition home or self-care (01) ==
LOC: LAB.S 10:31
PROVIDERS: ATTEND Emergency Medicine
DX: D64.9 Anemia, unspecified (principal)
CPT/HCPCS: 36415; 82565; 85025

== ENCOUNTER 2020-12-18 14:17 | Outpatient (CLI) | payer MEDICARE ==
[2020-12-18 19:50] LABS: BASOPHILS # (AUTO) 0.1 10^3/uL (0.0-0.1); BASOPHILS % (AUTO) 1.2 %; EOSINOPHILS # (AUTO) 0.4 10^3/uL (0.0-0.7); EOSINOPHILS % (AUTO) 4.1 %; HCT - HEMATOCRIT 33.4 % (37.0-47.0); HGB - HEMOGLOBIN 10.3 g/dL (12.0-16.0); LYMPHOCYTES # (AUTO) 1.7 10^3/uL (1.5-3.5); LYMPHOCYTES % (AUTO) 16.2 %; MEAN CORPUSCULAR HEMOGLOBIN 29.4 pg (27.0-31.0); MEAN CORPUSCULAR HGB CONC 30.8 g/dL (32.0-36.0); MEAN CORPUSCULAR VOLUME 95.4 fL (81.0-99.0); MEAN PLATELET VOLUME 10.8 fL (7.9-10.8); MONOCYTES # (AUTO) 0.9 10^3/uL (0.0-1.0); MONOCYTES % (AUTO) 8.5 %; NEUTROPHILS # (AUTO) 7.2 10^3/uL (1.5-6.6); NEUTROPHILS % (AUTO) 69.6 %; PLT - PLATELET COUNT 337 10^3/uL (130-450); RED CELL DISTRIBUTION WIDTH 13.6 % (12.0-15.0); WHITE BLOOD COUNT 10.4 x10^3/uL (4.8-10.8)
[2020-12-18 20:09] LABS: CREATININE 1.8 mg/dL (0.4-1.0)
== END 2020-12-18 14:18 | disposition home or self-care (01) ==
LOC: LAB.S 14:17
PROVIDERS: ATTEND Emergency Medicine
DX: D64.9 Anemia, unspecified (principal)
CPT/HCPCS: 36415; 82565; 85025

== ENCOUNTER 2021-01-03 10:56 | Outpatient (CLI) | payer MEDICARE ==
[2021-01-03 14:54] LABS: BASOPHILS # (AUTO) 0.1 10^3/uL (0.0-0.1); BASOPHILS % (AUTO) 1.3 %; EOSINOPHILS # (AUTO) 0.4 10^3/uL (0.0-0.7); EOSINOPHILS % (AUTO) 4.1 %; HCT - HEMATOCRIT 34.1 % (37.0-47.0); HGB - HEMOGLOBIN 10.4 g/dL (12.0-16.0); LYMPHOCYTES # (AUTO) 1.4 10^3/uL (1.5-3.5); LYMPHOCYTES % (AUTO) 16.1 %; MEAN CORPUSCULAR HEMOGLOBIN 29.1 pg (27.0-31.0); MEAN CORPUSCULAR HGB CONC 30.5 g/dL (32.0-36.0); MEAN CORPUSCULAR VOLUME 95.5 fL (81.0-99.0); MEAN PLATELET VOLUME 11.4 fL (7.9-10.8); MONOCYTES # (AUTO) 0.8 10^3/uL (0.0-1.0); MONOCYTES % (AUTO) 9.3 %; NEUTROPHILS # (AUTO) 5.9 10^3/uL (1.5-6.6); PLT - PLATELET COUNT 301 10^3/uL (130-450); RED BLOOD COUNT 3.57 10^6/uL (4.20-5.40); RED CELL DISTRIBUTION WIDTH 13.7 % (12.0-15.0); WHITE BLOOD COUNT 8.5 x10^3/uL (4.8-10.8)
== END 2021-01-03 10:57 | disposition home or self-care (01) ==
LOC: LAB.S 10:56
PROVIDERS: ATTEND Emergency Medicine
DX: D64.9 Anemia, unspecified (principal)
CPT/HCPCS: 36415; 82565; 85025

== ENCOUNTER 2021-01-25 08:47 | Outpatient (CLI) | payer MEDICARE ==
[2021-01-25 14:37] LABS: BASOPHILS # (AUTO) 0.1 10^3/uL (0.0-0.1); BASOPHILS % (AUTO) 1.6 %; EOSINOPHILS # (AUTO) 0.4 10^3/uL (0.0-0.7); EOSINOPHILS % (AUTO) 4.1 %; HCT - HEMATOCRIT 35.1 % (37.0-47.0); HGB - HEMOGLOBIN 10.9 g/dL (12.0-16.0); LYMPHOCYTES # (AUTO) 1.4 10^3/uL (1.5-3.5); LYMPHOCYTES % (AUTO) 15.2 %; MEAN CORPUSCULAR HEMOGLOBIN 29.1 pg (27.0-31.0); MEAN CORPUSCULAR HGB CONC 31.1 g/dL (32.0-36.0); MEAN CORPUSCULAR VOLUME 93.9 fL (81.0-99.0); MEAN PLATELET VOLUME 10.9 fL (7.9-10.8); MONOCYTES # (AUTO) 0.8 10^3/uL (0.0-1.0); MONOCYTES % (AUTO) 9.1 %; NEUTROPHILS # (AUTO) 6.2 10^3/uL (1.5-6.6); NEUTROPHILS % (AUTO) 69.7 %; PLT - PLATELET COUNT 273 10^3/uL (130-450); RED BLOOD COUNT 3.74 10^6/uL (4.20-5.40); RED CELL DISTRIBUTION WIDTH 13.6 % (12.0-15.0); WHITE BLOOD COUNT 8.9 x10^3/uL (4.8-10.8)
[2021-01-25 15:23] LABS: CREATININE 1.9 mg/dL (0.4-1.0)
== END 2021-01-25 08:48 | disposition home or self-care (01) ==
LOC: LAB.S 08:47
PROVIDERS: ATTEND Emergency Medicine
DX: D64.9 Anemia, unspecified (principal)
CPT/HCPCS: 36415; 82565; 85025

== ENCOUNTER 2021-02-08 12:24 | Outpatient (CLI) | payer MEDICARE ==
[2021-02-08 15:34] LABS: ALBUMIN 3.4 g/dL (3.2-5.5); CALCIUM 9.5 mg/dL (8.5-10.3); CREATININE 2.1 mg/dL (0.4-1.0); PHOSPHORUS 3.2 mg/dL (2.5-4.6); POTASSIUM 4.2 mmol/L (3.5-5.0)
[2021-02-09 14:46] LABS: BILIRUBIN,URINE NEGATIVE (NEGATIVE); GLUCOSE, URINE (UA) NEGATIVE (NEGATIVE); KETONES,URINE (UA) NEGATIVE (NEGATIVE); LEUKOCYTE ESTERASE, URINE TRACE (NEGATIVE); NITRITE,URINE NEGATIVE (NEGATIVE); OCCULT BLOOD,URINE NEGATIVE (NEGATIVE); PH,URINE 5.5 PH (5.0-7.5); PROTEIN,URINE 100 mg/dL (NEGATIVE); UROBILINOGEN,URINE 0.2 (NORMAL) E.U./dL (NORMAL)
[2021-02-09 14:58] LABS: CLARITY,URINE CLEAR (CLEAR)
[2021-02-09 15:01] LABS: BACTERIA,URINE Few /HPF (None Seen); MUCUS,URINE Moderate Strands; RBC,URINE 0-5 /HPF (0-5); SQUAMOUS EPITHELIAL CELL,UR FEW Squamous (<= Few); WBC,URINE 0-3 /HPF (0-5)
[2021-02-09 15:08] LABS: PROTEIN/CREATININE RATIO,URINE 1.7 (<=0.2)
== END 2021-02-08 12:25 | disposition home or self-care (01) ==
LOC: LAB.S 12:24
PROVIDERS: ATTEND Internal Medicine Nephrology
DX: N18.4 Chronic kidney disease, stage 4 (severe) (principal)
CPT/HCPCS: 36415; 80069; 81001; 82570; 83970; 84156

== ENCOUNTER 2021-02-22 07:38 | Outpatient (CLI) | payer MEDICARE ==
[2021-02-22 16:27] LABS: BASOPHILS # (AUTO) 0.1 10^3/uL (0.0-0.1); BASOPHILS % (AUTO) 1.7 %; EOSINOPHILS # (AUTO) 0.3 10^3/uL (0.0-0.7); EOSINOPHILS % (AUTO) 3.2 %; HCT - HEMATOCRIT 37.1 % (37.0-47.0); HGB - HEMOGLOBIN 11.4 g/dL (12.0-16.0); LYMPHOCYTES # (AUTO) 1.5 10^3/uL (1.5-3.5); LYMPHOCYTES % (AUTO) 17.5 %; MEAN CORPUSCULAR HEMOGLOBIN 29.4 pg (27.0-31.0); MEAN CORPUSCULAR HGB CONC 30.7 g/dL (32.0-36.0); MEAN CORPUSCULAR VOLUME 95.6 fL (81.0-99.0); MEAN PLATELET VOLUME 10.8 fL (7.9-10.8); MONOCYTES # (AUTO) 0.8 10^3/uL (0.0-1.0); MONOCYTES % (AUTO) 10.1 %; NEUTROPHILS # (AUTO) 5.6 10^3/uL (1.5-6.6); NEUTROPHILS % (AUTO) 67.1 %; PLT - PLATELET COUNT 274 10^3/uL (130-450); RED BLOOD COUNT 3.88 10^6/uL (4.20-5.40); RED CELL DISTRIBUTION WIDTH 13.6 % (12.0-15.0); WHITE BLOOD COUNT 8.3 x10^3/uL (4.8-10.8)
[2021-02-22 16:46] LABS: ALBUMIN 3.6 g/dL (3.2-5.5); CALCIUM 9.3 mg/dL (8.5-10.3); CREATININE 2.2 mg/dL (0.4-1.0); PHOSPHORUS 3.8 mg/dL (2.5-4.6); POTASSIUM 4.5 mmol/L (3.5-5.0)
[2021-02-22 17:11] LABS: % IRON SATURATION 28 % (20-50); IRON 69 ug/dL (28-170); TOTAL IRON BINDING CAPACITY 249 ug/dL (250-450); TRANSFERRIN 178 mg/dL (192-382)
[2021-02-22 20:07] LABS: BILIRUBIN,URINE NEGATIVE (NEGATIVE); GLUCOSE, URINE (UA) NEGATIVE (NEGATIVE); KETONES,URINE (UA) NEGATIVE (NEGATIVE); LEUKOCYTE ESTERASE, URINE NEGATIVE (NEGATIVE); NITRITE,URINE NEGATIVE (NEGATIVE); OCCULT BLOOD,URINE NEGATIVE (NEGATIVE); PH,URINE 5.5 PH (5.0-7.5); PROTEIN,URINE 100 mg/dL (NEGATIVE); UROBILINOGEN,URINE 0.2 (NORMAL) E.U./dL (NORMAL)
[2021-02-22 20:10] LABS: CLARITY,URINE CLEAR (CLEAR)
[2021-02-22 21:06] LABS: CREATININE,URINE 73.3 mg/dL; PROTEIN/CREATININE RATIO,URINE 1.5 (<=0.2)
== END 2021-02-22 07:39 | disposition home or self-care (01) ==
LOC: LAB.S 07:38
PROVIDERS: ATTEND Internal Medicine Clinical Cardiac Electrophysiology
DX: N18.4 Chronic kidney disease, stage 4 (severe) (principal)
CPT/HCPCS: 36415; 80069; 81003; 82570; 82728; 83540; 83970; 84156; 84466; 85025

== ENCOUNTER 2021-03-12 13:56 | Outpatient (CLI) | payer MEDICARE ==
[2021-03-12 19:55] LABS: BASOPHILS # (AUTO) 0.1 10^3/uL (0.0-0.1); BASOPHILS % (AUTO) 1.2 %; EOSINOPHILS # (AUTO) 0.2 10^3/uL (0.0-0.7); EOSINOPHILS % (AUTO) 1.6 %; HCT - HEMATOCRIT 38.4 % (37.0-47.0); HGB - HEMOGLOBIN 12.3 g/dL (12.0-16.0); LYMPHOCYTES # (AUTO) 1.8 10^3/uL (1.5-3.5); LYMPHOCYTES % (AUTO) 16.2 %; MEAN CORPUSCULAR HEMOGLOBIN 30.3 pg (27.0-31.0); MEAN CORPUSCULAR VOLUME 94.6 fL (81.0-99.0); MEAN PLATELET VOLUME 11.1 fL (7.9-10.8); MONOCYTES # (AUTO) 0.9 10^3/uL (0.0-1.0); MONOCYTES % (AUTO) 8.3 %; NEUTROPHILS % (AUTO) 72.4 %; PLT - PLATELET COUNT 361 10^3/uL (130-450); RED BLOOD COUNT 4.06 10^6/uL (4.20-5.40); RED CELL DISTRIBUTION WIDTH 13.6 % (12.0-15.0)
[2021-03-12 20:03] LABS: CREATININE 2.3 mg/dL (0.4-1.0)
== END 2021-03-12 13:57 | disposition home or self-care (01) ==
LOC: LAB.S 13:56
PROVIDERS: ATTEND Internal Medicine Nephrology
DX: N18.4 Chronic kidney disease, stage 4 (severe) (principal); D64.9 Anemia, unspecified
CPT/HCPCS: 36415; 82565; 85025

== ENCOUNTER 2021-03-20 08:00 | Outpatient (CLI) | payer MEDICARE ==
--- NOTE | 2021-03-20 14:36 | XRAY Report ---
PROCEDURE: Knee 4 View LT INDICATIONS: L TKA TECHNIQUE: 4 views of the left knee(s) were acquired. COMPARISON: 09/01/2020. FINDINGS: Bones: Patient is status post left total knee arthroplasty. Left knee alignment is anatomic and is u nchanged from prior study. No gross hardware loosening or failure. No patellar subluxation. No fractu res or dislocations. No suspicious bony lesions. Soft tissues: No joint effusion. No suspicious soft tissue calcifications. IMPRESSION: Anatomic and stable left knee alignment. No gross hardware complication. No fracture or dislocation. Reviewed by: Barrie Webb MD on 03/20/2021 2:35 PM PDT Approved by: Barrie Webb MD on 03/20/2021 2:35 PM PDT Station ID: [id number]
== END 2021-03-20 23:59 | disposition home or self-care (01) ==
LOC: DI.N 08:00
PROVIDERS: ATTEND Orthopaedic Surgery
DX: Z96.652 Presence of left artificial knee joint (principal)

== ENCOUNTER 2021-03-28 12:40 | Outpatient (CLI) | payer MEDICARE ==
[2021-03-28 15:24] LABS: ALBUMIN 3.9 g/dL (3.2-5.5); CALCIUM 9.5 mg/dL (8.5-10.3); CREATININE 2.4 mg/dL (0.4-1.0); PHOSPHORUS 4.7 mg/dL (2.5-4.6)
[2021-03-28 19:57] LABS: BILIRUBIN,URINE NEGATIVE (NEGATIVE); GLUCOSE, URINE (UA) NEGATIVE (NEGATIVE); KETONES,URINE (UA) NEGATIVE (NEGATIVE); LEUKOCYTE ESTERASE, URINE NEGATIVE (NEGATIVE); NITRITE,URINE NEGATIVE (NEGATIVE); OCCULT BLOOD,URINE NEGATIVE (NEGATIVE); PH,URINE 6.5 PH (5.0-7.5); PROTEIN,URINE 100 mg/dL (NEGATIVE); UROBILINOGEN,URINE 0.2 (NORMAL) E.U./dL (NORMAL)
[2021-03-28 20:01] LABS: CLARITY,URINE CLEAR (CLEAR)
[2021-03-28 20:03] LABS: CREATININE,URINE 70.7 mg/dL; PROTEIN/CREATININE RATIO,URINE 1.8 (<=0.2)
== END 2021-03-28 12:41 | disposition home or self-care (01) ==
LOC: LAB.S 12:40
PROVIDERS: ATTEND Internal Medicine Nephrology
DX: N18.4 Chronic kidney disease, stage 4 (severe) (principal)
CPT/HCPCS: 36415; 80069; 81003; 82570; 83970; 84156

== ENCOUNTER 2021-04-12 09:02 | Outpatient (CLI) | payer MEDICARE ==
[2021-04-12 14:51] LABS: BASOPHILS # (AUTO) 0.1 10^3/uL (0.0-0.1); BASOPHILS % (AUTO) 1.2 %; EOSINOPHILS # (AUTO) 0.3 10^3/uL (0.0-0.7); EOSINOPHILS % (AUTO) 3.4 %; HCT - HEMATOCRIT 33.1 % (37.0-47.0); HGB - HEMOGLOBIN 10.6 g/dL (12.0-16.0); LYMPHOCYTES # (AUTO) 1.6 10^3/uL (1.5-3.5); LYMPHOCYTES % (AUTO) 19.6 %; MEAN CORPUSCULAR HEMOGLOBIN 30.1 pg (27.0-31.0); MEAN PLATELET VOLUME 11.5 fL (7.9-10.8); MONOCYTES # (AUTO) 0.8 10^3/uL (0.0-1.0); MONOCYTES % (AUTO) 9.2 %; NEUTROPHILS # (AUTO) 5.4 10^3/uL (1.5-6.6); NEUTROPHILS % (AUTO) 66.4 %; PLT - PLATELET COUNT 259 10^3/uL (130-450); RED BLOOD COUNT 3.52 10^6/uL (4.20-5.40); RED CELL DISTRIBUTION WIDTH 13.2 % (12.0-15.0); WHITE BLOOD COUNT 8.2 x10^3/uL (4.8-10.8)
== END 2021-04-12 09:03 | disposition home or self-care (01) ==
LOC: LAB.S 09:02
PROVIDERS: ATTEND Internal Medicine Clinical Cardiac Electrophysiology
DX: N18.4 Chronic kidney disease, stage 4 (severe) (principal)
CPT/HCPCS: 36415; 85025

== ENCOUNTER 2021-04-27 13:40 | Outpatient (CLI) | payer MEDICARE ==
[2021-04-27 20:23] LABS: BASOPHILS # (AUTO) 0.1 10^3/uL (0.0-0.1); EOSINOPHILS # (AUTO) 0.2 10^3/uL (0.0-0.7); EOSINOPHILS % (AUTO) 1.9 %; HCT - HEMATOCRIT 28.5 % (37.0-47.0); HGB - HEMOGLOBIN 9.3 g/dL (12.0-16.0); LYMPHOCYTES # (AUTO) 1.7 10^3/uL (1.5-3.5); LYMPHOCYTES % (AUTO) 16.6 %; MEAN CORPUSCULAR HEMOGLOBIN 30.3 pg (27.0-31.0); MEAN CORPUSCULAR HGB CONC 32.6 g/dL (32.0-36.0); MEAN CORPUSCULAR VOLUME 92.8 fL (81.0-99.0); MONOCYTES # (AUTO) 0.9 10^3/uL (0.0-1.0); NEUTROPHILS # (AUTO) 7.2 10^3/uL (1.5-6.6); NEUTROPHILS % (AUTO) 71.4 %; PLT - PLATELET COUNT 247 10^3/uL (130-450); RED BLOOD COUNT 3.07 10^6/uL (4.20-5.40); RED CELL DISTRIBUTION WIDTH 13.2 % (12.0-15.0)
== END 2021-04-27 13:41 | disposition home or self-care (01) ==
LOC: LAB.S 13:40
PROVIDERS: ATTEND Internal Medicine Clinical Cardiac Electrophysiology
DX: N18.4 Chronic kidney disease, stage 4 (severe) (principal)
CPT/HCPCS: 36415; 85025

== ENCOUNTER 2021-05-14 13:28 | Outpatient (CLI) | payer MEDICARE ==
[2021-05-14 19:49] LABS: BASOPHILS # (AUTO) 0.1 10^3/uL (0.0-0.1); BASOPHILS % (AUTO) 0.9 %; EOSINOPHILS # (AUTO) 0.2 10^3/uL (0.0-0.7); EOSINOPHILS % (AUTO) 1.4 %; HCT - HEMATOCRIT 28.9 % (37.0-47.0); LYMPHOCYTES # (AUTO) 1.7 10^3/uL (1.5-3.5); LYMPHOCYTES % (AUTO) 14.1 %; MEAN CORPUSCULAR HEMOGLOBIN 29.8 pg (27.0-31.0); MEAN CORPUSCULAR HGB CONC 31.1 g/dL (32.0-36.0); MEAN CORPUSCULAR VOLUME 95.7 fL (81.0-99.0); MEAN PLATELET VOLUME 11.5 fL (7.9-10.8); MONOCYTES # (AUTO) 0.8 10^3/uL (0.0-1.0); MONOCYTES % (AUTO) 7.1 %; NEUTROPHILS % (AUTO) 76.1 %; PLT - PLATELET COUNT 310 10^3/uL (130-450); RED BLOOD COUNT 3.02 10^6/uL (4.20-5.40); RED CELL DISTRIBUTION WIDTH 13.7 % (12.0-15.0); WHITE BLOOD COUNT 11.8 x10^3/uL (4.8-10.8)
== END 2021-05-14 13:29 | disposition home or self-care (01) ==
LOC: LAB.S 13:28
PROVIDERS: ATTEND Internal Medicine Clinical Cardiac Electrophysiology
DX: N18.4 Chronic kidney disease, stage 4 (severe) (principal)
CPT/HCPCS: 36415; 85025

== ENCOUNTER 2021-05-24 08:55 | Outpatient (CLI) | payer MEDICARE ==
[2021-05-24 14:29] LABS: BASOPHILS # (AUTO) 0.1 10^3/uL (0.0-0.1); BASOPHILS % (AUTO) 1.5 %; EOSINOPHILS # (AUTO) 0.3 10^3/uL (0.0-0.7); EOSINOPHILS % (AUTO) 3.2 %; HCT - HEMATOCRIT 30.1 % (37.0-47.0); HGB - HEMOGLOBIN 9.4 g/dL (12.0-16.0); LYMPHOCYTES # (AUTO) 1.6 10^3/uL (1.5-3.5); LYMPHOCYTES % (AUTO) 19.8 %; MEAN CORPUSCULAR HEMOGLOBIN 29.9 pg (27.0-31.0); MEAN CORPUSCULAR HGB CONC 31.2 g/dL (32.0-36.0); MEAN CORPUSCULAR VOLUME 95.9 fL (81.0-99.0); MEAN PLATELET VOLUME 11.3 fL (7.9-10.8); MONOCYTES # (AUTO) 0.7 10^3/uL (0.0-1.0); MONOCYTES % (AUTO) 8.8 %; NEUTROPHILS # (AUTO) 5.5 10^3/uL (1.5-6.6); NEUTROPHILS % (AUTO) 66.3 %; PLT - PLATELET COUNT 268 10^3/uL (130-450); RED BLOOD COUNT 3.14 10^6/uL (4.20-5.40); RED CELL DISTRIBUTION WIDTH 14.1 % (12.0-15.0); WHITE BLOOD COUNT 8.2 x10^3/uL (4.8-10.8)
== END 2021-05-24 08:56 | disposition home or self-care (01) ==
LOC: LAB.S 08:55
PROVIDERS: ATTEND Internal Medicine Clinical Cardiac Electrophysiology
DX: N18.4 Chronic kidney disease, stage 4 (severe) (principal)
CPT/HCPCS: 36415; 85025

== ENCOUNTER 2023-06-06 14:56 | Outpatient (CLI) | payer MEDICARE ==
--- NOTE | 2023-06-06 15:48 | XRAY Report ---
PROCEDURE: Knee 4 View RT INDICATIONS: KNEE JOINT PAIN > 3 MONTHS, RIGHT TECHNIQUE: 4 views of the knee were acquired. COMPARISON: Bilateral knee radiographs 06/05/2020 FINDINGS: Bones: Postsurgical are seen from patellar fracture fixation with metal pins and wires. Residual tra nsverse lucency is seen within the patella. Alignment appears to be anatomic. There is severe narrowi ng of the medial femorotibial compartment joint space with subchondral sclerosis and small marginal o steophytes. Mild lateral compartment and moderate anterior compartment joint space narrowing. Soft tissues: Small knee joint effusion. Nonspecific soft tissue edema surrounding the ankle. Arteri al vascular calcifications are present. IMPRESSION: Postsurgical changes are seen from patellar fracture fixation with anatomic alignment. Reviewed by: Bora Moulton MD on 06/06/2023 3:47 PM PST Approved by: Bora Moulton MD on 06/06/2023 3:47 PM PST Station ID: [id number]
== END 2023-06-06 14:57 | disposition home or self-care (01) ==
LOC: DI.S 14:56
PROVIDERS: ATTEND Physician Assistant Medical
DX: M25.561 Pain in right knee (principal)

== ENCOUNTER 2023-06-10 11:56 | Emergency (ER) | payer MEDICARE ==
--- NOTE | 2023-06-10 12:46 | ED Physician Documentation ---
History of Present Illness - Stated complaint Stated Complaint: RT KNEE PX,SWELLING - Chief complaint Chief Complaint: Ext Problem - Additonal information Additional information: 87-year-old female here for acutely worsening pain of the right knee as well as a bump on the lateral superior region that developed several weeks ago. Patient states that in February of this year she had a fall while at her residence in [place]. She did fracture her patella. She underwent wire fixation of this patella fracture and has been recovering normally since then. The knee has generally remained swollen since the surgery but she has been able to ambulate with minimal difficulty. Over the last several weeks a bump has developed and now that she is in the [place] for at least the next 6 months she is requesting evaluation. She has had no fevers, no drainage. Patient splits her 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: Hysterectomy HEENT: Cataracts - Present Medications Home Medications: Ambulatory Orders Medication Instructions Recorded Confirmed Aspirin Chewable [St Yoseph 81 mg PO DAILY 11/29/13 07/11/20 Aspirin] Insulin Glargine [Lantus Solostar] 30 units SUBQ QPM 11/29/13 07/19/20 Albuterol Sulf [Ventolin Hfa 1 - 2 puffs INH Q4HR PRN 01/05/18 07/11/20 Inhaler] Cholecalciferol [Vitamin D3] 5,000 unit PO DAILY 01/05/18 07/11/20 Cyanocobalamin (Vitamin B-12) 2,500 mcg PO DAILY 01/05/18 07/11/20 [Vitamin B-12] Doxazosin Mesylate 2 mg PO BID 01/05/18 07/19/20 Furosemide 20 mg PO DAILY PRN 01/05/18 07/19/20 Epoetin [Procrit] 5,000 unit SUBQ OAW 07/11/20 07/19/20 Labetalol HCl 400 mg PO BID 07/11/20 07/19/20 Oxycodone HCl [Roxicodone] 5 mg PO Q6HR PRN 07/11/20 07/19/20 - Allergies Allergies/Adverse Reactions: Allergies Allergy/AdvReac Type Severity Reaction Status Date / Time adhesive Allergy Rash Verified 06/10/23 12:09 contact metal agent AdvReac Itching Verified 06/10/23 12:09 - Social History Does the pt smoke?: No Smoking Status: Never smoker Does the pt drink ETOH?: Yes Does the pt have substance abuse?: No - Immunizations Immunizations are current?: Yes - POLST Patient has POLST: No PD ED PE NORMAL - Extremities Extremities: Other (Right knee with moderate swelling. Normal flexion and extension. No laxity. Bears full weight using an arm crutch. Superior lateral region of the patella with a firm bump but no drainage or erythema. Palpable wires felt underneath) Results - Vitals Vitals: Vital Signs - 24 hr 06/10/23 12:03 Temperature 36.9 C Heart Rate 70 Respiratory 16 Rate Blood Pressure 204/69 H O2 Saturation 98 Oxygen O2 Source Room air PD Medical Decision Making - ED course Complexity details: reviewed results, re-evaluated patient, d/w patient ED course: 87-year-old female here for evaluation of right knee pain. Has moderate swelling of the joint that is not new since her surgery in February. There is a palpable lump felt on the superior lateral edge of the knee and wires felt underneath. I was able to review x-ray images completed about 5 days ago at a walk-in clinic which shows postsurgical changes from the patella fracture with normal anatomic alignment. Was able to briefly discuss this case with Dr. Tim Marroquin orthopedist recreation programmer. Because there is no evidence of infection within the knee itself, redness or drainage antibiotics are not indicated though he she should be followed up urgently with orthopedics to discuss hardware removal. I discussed this plan and findings with the patient and she feels comfortable following up with orthopedics. The usual emergent return precautions were discussed for worsening symptoms. Departure - Departure Disposition: 01 Home, Self Care Clinical Impression: History of fractured kneecap Right knee pain Qualifiers: Chronicity: acute Qualified Code(s): M25.561 - Pain in right knee Condition: Stable Record reviewed to determine appropriate education?: Yes Follow-Up: Tim Marroquin MD [Provider Admit Priv/Credential] - Comments: You were seen today because of the last several weeks you have developed a bump on your right knee. This bump is originating from the wires originally placed to manage your kneecap fracture. The x-rays show that the kneecap fracture has healed but because the wires are now at risk of causing breakthrough to the skin or even infection you will need to see orthopedics to discuss how the wires should be removed. This case was discussed today with Dr. Marroquin, and associate of Dr. Ochoa. Please call the orthopedics office to arrange prompt follow-up to discuss hardware removal. It is important that you return immediately to the emergency department if you develop any fevers, have drainage, C-wire poking through the skin or develop any sores in this area.
[2023-06-10 13:05] VITALS: BP 194/64; O2SAT 94
== END 2023-06-10 13:02 | disposition home or self-care (01) ==
LOC: ED 11:56
DX: M25.561 Pain in right knee (principal); S82.001D Unspecified fracture of right patella, subsequent encounter for closed fracture with routine healing; X58.XXXD Exposure to other specified factors, subsequent encounter
CPT/HCPCS: 99283

== ENCOUNTER 2023-06-18 09:07 | Outpatient (CLI) | payer MEDICARE | END 2023-06-18 09:08 | disposition critical access hospital (66) | LOC: EMS 09:07 | DX: M25.561 Pain in right knee (principal); M79.89 Other specified soft tissue disorders | CPT/HCPCS: A0425; A0429 ==

== ENCOUNTER 2023-06-18 09:49 | Emergency (ER) | payer MEDICARE ==
--- NOTE | 2023-06-18 10:43 | XRAY Report ---
PROCEDURE: Knee 4 View RT INDICATIONS: knee pain TECHNIQUE: 3 views of the knee(s) were acquired. COMPARISON: 06/06/2023. FINDINGS: Bones: ORIF of the patella has been performed. Tricompartmental periarticular osteophyte formation. No suspicious bony lesions. Soft tissues: No knee joint effusion. No suspicious soft tissue calcifications or masses. IMPRESSION: Stable postsurgical sequelae. Reviewed by: Christine Shaffer MD on 06/18/2023 10:42 AM [facility] Approved by: Christine Shaffer MD on 06/18/2023 10:42 AM [facility] Station ID: [id number]
--- NOTE | 2023-06-18 11:12 | ED Physician Documentation ---
PD HPI LOWER EXT INJURY - Stated complaint Stated Complaint: R KNEE PX - Chief complaint Chief Complaint: Ext Problem - History obtained from History obtained from: Patient - History of Present Illness PD HPI LOW EXT INJURY LOCATION: Right, Knee Type of injury: Foreign body (she had a fractured patella in Feb and had repair in [place]. [place] is [place] now and was having pain at the area of a wire poking just under the skin. Saw ortho office last week and referred to Dr. Reza to have it removed. Developed a sore where wire poked from underneath, with infection now.). No: Fall, Blunt / blow Timing - onset: How many weeks ago (has had some pain from wire under skin for weeks with worsening. Now with redness/swelling and increased pain the past 2 d ays.) Timing - details: Abrupt onset (the much worse pain with redness/swelling has developed abruptly.), Still present Improved by: No: Rest Worsened by: Moving, Palpating Associated symptoms: Swelling, Discolored (some redness with swelling anterior knee.). No: Weakness, Numbness Contributing factors: Prior ortho surgery (repair of patellar fracture Feb 2023.) Recently seen: Clinic (seen ortho clinic last week with deferral to Dr. Reza, appt tomorrow.) Review of Systems Constitutional: denies: Fever, Chills Skin: reports: Lesions (a small pinhole sore in skin has developed over the wire end, with faint white discharge (I got 2 drops out of it with massaging round it).) PD PAST MEDICAL HISTORY - Past Medical History Past Medical History: Yes Cardiovascular: Hypertension, Valve disorder Respiratory: Asthma, Tuberculosis Neuro: Dementia Endocrine/Autoimmune: Type 2 diabetes GI: GERD : Kidney stones, Other HEENT: None Psych: None Musculoskeletal: Osteoarthritis, Chronic back pain Derm: None - Past Surgical History Past Surgical History: Yes General: Cholecystectomy, Appendectomy Ortho: 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 HEENT: Cataracts - Present Medications Home Medications: Ambulatory Orders Medication Instructions Recorded Confirmed Aspirin Chewable [St Yoseph 81 mg PO DAILY 11/29/13 07/11/20 Aspirin] Insulin Glargine [Lantus Solostar] 30 units SUBQ QPM 11/29/13 07/19/20 Albuterol Sulf [Ventolin Hfa 1 - 2 puffs INH Q4HR PRN 01/05/18 07/11/20 Inhaler] Cholecalciferol [Vitamin D3] 5,000 unit PO DAILY 01/05/18 07/11/20 Cyanocobalamin (Vitamin B-12) 2,500 mcg PO DAILY 01/05/18 07/11/20 [Vitamin B-12] Doxazosin Mesylate 2 mg PO BID 01/05/18 07/19/20 Furosemide 20 mg PO DAILY PRN 01/05/18 07/19/20 Epoetin [Procrit] 5,000 unit SUBQ OAW 07/11/20 07/19/20 Labetalol HCl 400 mg PO BID 07/11/20 07/19/20 Oxycodone HCl [Roxicodone] 5 mg PO Q6HR PRN 07/11/20 07/19/20 HYDROcod/ACETAM 5/325 [Veguita 5/325] 1 ea PO Q6H PRN #12 tablet 06/18/23 Meloxicam [Mobic] 7.5 mg PO BID 10 Days #14 tablet 06/18/23 cephALEXin [Keflex] 500 mg PO TID #15 cap 06/18/23 clindamycin HCL [Clindamycin HCl] 300 mg PO TID 7 Days #15 cap 06/18/23 - Allergies Allergies/Adverse Reactions: Allergies Allergy/AdvReac Type Severity Reaction Status Date / Time adhesive Allergy Rash Verified 06/18/23 10:01 contact metal agent AdvReac Itching Verified 06/18/23 10:01 - Social History Does the pt smoke?: No Smoking Status: Never smoker Does the pt drink ETOH?: Yes Does the pt have substance abuse?: No - Immunizations Immunizations are current?: Yes - POLST Patient has POLST: No PD ED PE NORMAL - Vitals Vital signs reviewed: Yes - General General: Alert and oriented X 3, Well developed/nourished - Derm Derm: Normal color, Warm and dry, Other (2-3 mm hole in skin over a point of palpable surcial pin end under the skin. Very tender. small 2 drops of purulent material massaged out and cultured. No pain posteriorly. ) - Extremities Extremities: Other (right knee with moderate redness and warmth around area of patella. No effusion noted. Markedly tender.). No: Normal ROM s pain - Neuro Neuro: No motor deficit, No sensory deficit Results - Vitals Vitals: Vital Signs - 24 hr 06/18/23 06/18/23 06/18/23 10:02 12:05 14:00 Temperature 37 C Heart Rate 75 55 L 62 Respiratory 18 14 18 Rate Blood Pressure 158/108 H 191/65 H 189/61 H O2 Saturation 96 98 97 If not protocol 2 : Oxygen Flow, liters/minute 06/18/23 06/18/23 16:00 17:00 Temperature Heart Rate 72 60 Respiratory 15 16 Rate Blood Pressure 139/95 H 148/89 H O2 Saturation 91 L 93 If not protocol : Oxygen Flow, liters/minute Oxygen O2 Source Room air - Labs Labs: Laboratory Tests 06/18/23 06/18/23 06/18/23 12:00 12:00 12:00 WBC 17.6 H RBC 3.73 L Hgb 10.5 L Hct 33.2 L MCV 89.0 MCH 28.2 MCHC 31.6 L RDW 13.7 Plt Count 297 MPV 10.3 Neut # (Auto) 14.7 H Lymph # (Auto) 1.3 L [place] # (Auto) 1.3 H Eos # (Auto) 0.1 Baso # (Auto) 0.2 H Absolute Nucleated RBC 0.00 Nucleated RBC % 0.0 Sodium 136 Potassium 4.8 H Chloride 105 Carbon Dioxide 26 Anion Gap 5.0 L BUN 50 H Creatinine 2.5 H Estimated GFR (MDRD) 18 L Glucose 149 H Lactic Acid 0.6 Calcium 9.2 Magnesium 1.4 L Total Bilirubin 0.6 AST 11 ALT 7 L Alkaline Phosphatase 62 Total Protein 6.8 Albumin 3.5 Globulin 3.3 Albumin/Globulin Ratio 1.1 Lipase 13 - Rads (name of study) right knee Relevant Findings:: Prelim report reviewed, EMP independent interpretation of test (surgical repair findings. ) knee CT Relevant Findings:: Prelim report reviewed (surgical repair findings. No mention of fluid collections. ) PD Medical Decision Making - ED course Complexity details: reviewed results (xray showing wires and pins. No noted air in tissue. Prior fracture still visible. hard to tell if bridging of the fracture with bone. CT knee done at request of Dr. Reza to see extent of bone repair to aid in surgical decision making. ), re-evaluated patient (pain less with IV meds of toradol and dilaudid. Also given Ancef and Clinda IV for presumed infection. ), considered differential (has had surgical wire poking undersiade of skin with pain for weeks. She had lost weight and muscle in legs since the injury, so presume the subcut layer got shallower. Now with infection around skin hole that eroded. Appears cellulitic around it but only moderate red/warm, so consider inflammatory.), d/w patient, d/w wardrobe consultant (Dr. Reza was in the OR and came after his case. Talked with pt and assessed exam/labs/xray, requested CT, and talked with pt/family about best outcome to do antibiotics for few days then surgery removal of hardware. Will see pt in office tomorrow as scheduled. ) Reviewed Lab Results: creatinine 2.5 which is about baseline for pt since 2020. As such I chose to cover staph potential with clinda rather than sulfa nor vanco. Should aid in decreasing inflammaiton as well. Keflex as well for strep coverage. Both pending culture result. WBC elevated at 17K. Pt without fever though and does not appear septic. Departure - Departure Disposition: 01 Home, Self Care Clinical Impression: Knee pain, right, Abscess or cellulitis of knee Condition: Stable Record reviewed to determine appropriate education?: Yes Instructions: ED Staph Infec Abx Tx Only Follow-Up: Robin Reza MD [Provider Admit Priv/Credential] - Prescriptions: clindamycin HCL [Clindamycin HCl] 300 mg PO TID 7 Days #15 cap cephALEXin [Keflex] 500 mg PO TID #15 cap Meloxicam [Mobic] 7.5 mg PO BID 10 Days #14 tablet HYDROcod/ACETAM 5/325 [Veguita 5/325] 1 ea PO Q6H PRN #12 tablet PRN Reason: Pain Comments: We obtained the CT scan as directed by Dr. Reza. He will look at that and this will help him decide on what type of procedure to do to remove the pins etc. He does want to see you tomorrow as scheduled. We are concerned about infection in the skin. I did do a culture swab and that should result in a couple of days. At this point we do 2 antibiotics to cover the various common germs to cause this type of infection. When the culture result is back we should be able to tailor it to just 1 or the other. Use anti-inflammatory such as naproxen or meloxicam or such. To that add Tylenol 500 to 650 mg every 4-6 hours if needed for pain. In addition you can use hydrocodone/acetaminophen if needed for worse pain. I wrote a prescription for these medications and sent it to your preferred pharmacy. Just the Williams wrap for now to the knee. Do not use the knee brace since it seemed to irritate the area. Follow-up with Dr. Reza in the orthopedic office tomorrow as planned as directed by Dr. Reza. Forms: PCP List Discharge Date/Time: 06/18/23 17:01
[2023-06-18] MEDS ORDERED: CLINDAMYCIN 600 MG/50 ML 50 ML IV ONE (11:40)
[2023-06-18] MEDS ORDERED: ceFAZolin (2G) 2 GM in SODIUM CHLORIDE 0.9% 100ML 100 ML IV STA (11:40)
[2023-06-18] MEDS ORDERED: KETOROLAC 15 MG/ML VIAL IVP STA (11:42)
[2023-06-18] MEDS ORDERED: HYDROmorphone 1 MG/ML CARPUJECT IVP STA (11:42)
[2023-06-18 12:08] LABS: BASOPHILS # (AUTO) 0.2 10^3/uL (0.0-0.1); BASOPHILS % (AUTO) 0.9 %; EOSINOPHILS # (AUTO) 0.1 10^3/uL (0.0-0.7); EOSINOPHILS % (AUTO) 0.5 %; HCT - HEMATOCRIT 33.2 % (37.0-47.0); HGB - HEMOGLOBIN 10.5 g/dL (12.0-16.0); LYMPHOCYTES # (AUTO) 1.3 10^3/uL (1.5-3.5); LYMPHOCYTES % (AUTO) 7.4 %; MEAN CORPUSCULAR HEMOGLOBIN 28.2 pg (27.0-31.0); MEAN CORPUSCULAR HGB CONC 31.6 g/dL (32.0-36.0); MEAN PLATELET VOLUME 10.3 fL (7.9-10.8); MONOCYTES # (AUTO) 1.3 10^3/uL (0.0-1.0); MONOCYTES % (AUTO) 7.4 %; NEUTROPHILS # (AUTO) 14.7 10^3/uL (1.5-6.6); NEUTROPHILS % (AUTO) 83.5 %; PLT - PLATELET COUNT 297 10^3/uL (130-450); RED BLOOD COUNT 3.73 10^6/uL (4.20-5.40); RED CELL DISTRIBUTION WIDTH 13.7 % (12.0-15.0); WHITE BLOOD COUNT 17.6 x10^3/uL (4.8-10.8)
[2023-06-18 12:41] LABS: ALBUMIN 3.5 g/dL (3.2-5.5); ALBUMIN/GLOBULIN RATIO 1.1 (1.0-2.2); BILIRUBIN,TOTAL 0.6 mg/dL (0.2-1.0); CALCIUM 9.2 mg/dL (8.5-10.3); CREATININE 2.5 mg/dL (0.6-1.3); MAGNESIUM 1.4 mg/dL (1.7-2.3); POTASSIUM 4.8 mmol/L (3.5-4.5); TOTAL PROTEIN 6.8 g/dL (6.4-8.9)
[2023-06-18] MEDS ORDERED: HYDROmorphone 0.5 MG/0.5 ML SYRINGE IVP STA (15:07)
--- NOTE | 2023-06-18 16:28 | CT Report ---
PROCEDURE: LOWER EXTREMITY WO - RT INDICATIONS: knee pain, post repair. TECHNIQUE: Noncontrast 3-mm axial sections acquired from the distal tibial shaft to the talar dome, with coronal and sagittal reformats. For radiation dose reduction, the following was used: automated exposure c ontrol, adjustment of mA and/or kV according to patient size. COMPARISON: Plain films dated 06/18/2023 FINDINGS: Image quality: Degraded by metallic artifact. Bones: Diffuse osteopenia is present. ORIF of the patella. Linear lucency traverses the mid/superior patella. Soft tissues: No fluid collections. No masses. Impression: 1. Osteopenia. 2. Postsurgical sequelae. Bone scan or MRI may be helpful for further assessment. Reviewed by: Christine Shaffer MD on 06/18/2023 4:26 PM PST Approved by: Christine Shaffer MD on 06/18/2023 4:26 PM PST Station ID: [id number]
[2023-06-18 17:06] VITALS: BP 148/89; O2SAT 93
== END 2023-06-18 17:01 | disposition home or self-care (01) ==
LOC: EDUNIT# → ED 09:49
DX: L03.115 Cellulitis of right lower limb (principal); I10 Essential (primary) hypertension; E11.9 Type 2 diabetes mellitus without complications; Z79.4 Long term (current) use of insulin
CPT/HCPCS: 36415; 73564; 73700; 80053; 83605; 83690; 83735; 85025; 87070; 87077; 87205; 96365; 96367; 96375; 96376; 99284; J1170

== ENCOUNTER 2023-06-23 12:16 | Day surgery (SDC) | payer MEDICARE ==
[~2023-06-23 12:16] MED LIST changes: -ACETAMINOPHEN 1,000 MG/100 ML 0 ML IV ONE; -CELECOXIB 100 MG CAPSULE PO ONE; -DEXAMETHASONE 10 MG/ML VIAL ONE; +LACTATED RINGERS 1,000 ML IV ONE; +ceFAZolin 2 GM VIAL ONE; -ceFAZolin 2 GM/50 ML 2 GM/50 ML BAG IV ONE
[2023-06-23] MEDS ORDERED: ACETAMINOPHEN 500 MG TABLET PO ONE (12:42)
[2023-06-23] MEDS ORDERED: LACTATED RINGERS 1,000 ML IV ONE ×2 (12:46→18:45)
[2023-06-23] MEDS ORDERED: LABETALOL 20 MG/4 ML SYRINGE IVP ONE (13:09)
[2023-06-23 13:10] LABS: HCT - HEMATOCRIT 32.1 % (37.0-47.0); HGB - HEMOGLOBIN 10.2 g/dL (12.0-16.0); MEAN CORPUSCULAR HEMOGLOBIN 27.7 pg (27.0-31.0); MEAN CORPUSCULAR HGB CONC 31.8 g/dL (32.0-36.0); MEAN CORPUSCULAR VOLUME 87.2 fL (81.0-99.0); MEAN PLATELET VOLUME 10.5 fL (7.9-10.8); RED BLOOD COUNT 3.68 10^6/uL (4.20-5.40); RED CELL DISTRIBUTION WIDTH 13.3 % (12.0-15.0); WHITE BLOOD COUNT 12.2 x10^3/uL (4.8-10.8)
--- NOTE | 2023-06-23 13:19 | ANESTHESIA ---
Pre-Anesthesia VS, & Labs - Diagnosis infected hardware R knee - Procedure removal R knee hardware Vital Signs: Temp Pulse Resp BP Pulse Ox O2 Flow Rate 36.6 C 60 12 204/62 H 100 06/23/23 12:55 06/23/23 12:55 06/23/23 12:55 06/23/23 12:55 06/23/23 12:55 Height: 5 ft 1 in Weight (kg): 54.5 kg Body Mass Index: 22.6 BMI Classification: Normal - NPO >8 hours - Is Patient ?: No - Lab Results Current Lab Results: Laboratory Tests 06/23/23 12:58: WBC 12.2 H, RBC 3.68 L, Hgb 10.2 L, Hct 32.1 L, MCV 87.2, MCH 27.7, MCHC 31.8 L, RDW 13.3, Plt Count 323, MPV 10.5 Fish Bones: 06/23/23 12:58 Home Medications and Allergies Aspirin Chewable [St Yoseph Aspirin] 81 mg PO DAILY 11/29/13 Insulin Glargine [Lantus Solostar] 30 units SUBQ QPM 11/29/13 Albuterol Sulf [Ventolin Hfa Inhaler] 1 - 2 puffs INH Q4HR PRN 01/05/18 Cholecalciferol [Vitamin D3] 5,000 unit PO DAILY 01/05/18 Cyanocobalamin (Vitamin B-12) [Vitamin B-12] 2,500 mcg PO DAILY 01/05/18 Doxazosin Mesylate 2 mg PO BID 01/05/18 Furosemide 20 mg PO DAILY PRN 01/05/18 Epoetin [Procrit] 5,000 unit SUBQ OAW 07/11/20 Labetalol HCl 400 mg PO BID 07/11/20 Oxycodone HCl [Roxicodone] 5 mg PO Q6HR PRN 07/11/20 Allergies/Adverse Reactions: Allergies Allergy/AdvReac Type Severity Reaction Status Date / Time adhesive Allergy Rash Verified 06/18/23 10:01 contact metal agent AdvReac Itching Verified 06/18/23 10:01 Anes History & Medical History - Anesthetic History Anesthesia Complications: reports: No previous complications Family history of Anesthesia Complications: Denies Family history of Malignant Hyperthermia: Denies - Medical History Cardiovascular: reports: Hypertension, Valve disorder Pulmonary: reports: Asthma, Tuberculosis Gastrointestinal: reports: GERD Urinary: reports: Kidney stones, Other Neuro: reports: Dementia Musculoskeletal: reports: Osteoarthritis, Chronic back pain Endocrine/Autoimmune: reports: Type 2 diabetes Skin: reports: None Smoking Status: Never smoker Psychosocial: reports: No issues indicated History of Cancer?: No - Surgical History General: reports: Cholecystectomy, Appendectomy Eyes Ears Nose Throat (EENT): reports: Cataracts Gynecologic: reports: Hysterectomy Orthopedic: reports: Knee replacement Exam General: Alert, Oriented x3, Cooperative Dental: Dentures full Upper, Dentures full Lower Mouth Openin Fingerbreadth Neck Mobility: Reduced Mallampati classification: I Thyromental Distance: 4-6 cm Respiratory: Lungs clear Cardiovascular: Regular rate Plan Anesthesia Type: Spinal Consent for Procedure(s) Verified and Reviewed: Yes Code Status: Attempt Resuscitation ASA classification: 3-Severe systemic disease Is this case an emergency?: Yes
[2023-06-23] MEDS ORDERED: ONDANSETRON 4 MG/2 ML VIAL ONE (14:51)
[2023-06-23] MEDS ORDERED: fentaNYL 100 MCG/2 ML VIAL ONE ×3 (14:51→19:24)
[2023-06-23] MEDS ORDERED: DEXTROSE 50% ABBOJECT 25 GM/50 ML SYRINGE ONE (15:18)
[2023-06-23] MEDS ORDERED: ePHEDrine 50 MG/ML VIAL IVP ONE (16:21)
[2023-06-23] MEDS ORDERED: VANCOMYCIN 1 GM VIAL ONE (17:14)
[2023-06-23] MEDS ORDERED: LIDOCAINE 1%-EPI 1:100000 20 ML MDV ONE (17:53)
[2023-06-23] MEDS ORDERED: BUPIVACAINE 0.25% PF 10 ML VIAL ONE (17:53)
[2023-06-23] MEDS ORDERED: LIDOCAINE 1%-EPI 1:100000 20 ML MDV SUBQ ONE ×2 (18:20)
[2023-06-23] MEDS ORDERED: BUPIVACAINE 0.25% PF 10 ML VIAL SUBQ ONE (18:20)
[2023-06-23] MEDS ORDERED: CELECOXIB 100 MG CAPSULE PO PRN (18:37)
[2023-06-23] MEDS ORDERED: ONDANSETRON 4 MG/2 ML VIAL IVP PRN ×2 (18:37→18:46)
--- NOTE | 2023-06-23 18:39 | XRAY Report ---
PROCEDURE: OR C-Arm Procedure INDICATIONS: RIGHT PATELLA REMOVAL AND REVISION ON HARDWARE FLUORO TIME: 0:11 MIN TECHNIQUE: 2 intraoperative fluoroscopic images of right knee were obtained. COMPARISON: None. FINDINGS: Intraoperative fluoroscopic images shows 2 surgical screws within right patella with a transverse mid patellar fracture is seen. IMPRESSION: Fluoroscopy guidance was provided intraoperatively for right patella hardware removal and revision. Reviewed by: Barrie Webb MD on 06/23/2023 6:37 PM PST Approved by: Barrie Webb MD on 06/23/2023 6:37 PM PST Station ID: [id number]
[2023-06-23] MEDS ORDERED: ePHEDrine 50 MG/ML VIAL IVP PRN (18:46)
[2023-06-23] MEDS ORDERED: METOCLOPRAMIDE 10 MG/2 ML VIAL IVP PRN (18:46)
[2023-06-23] MEDS ORDERED: ATROPINE ABBOJECT 1 MG/10 ML SYRINGE IVP PRN (18:46)
[2023-06-23] MEDS ORDERED: NALOXONE 0.4 MG/ML VIAL IVP PRN (18:46)
[2023-06-23] MEDS ORDERED: MORPHINE 2 MG/ML CARPUJECT IVP PRN (18:46)
[2023-06-23] MEDS ORDERED: HYDROmorphone 0.5 MG/0.5 ML SYRINGE ONE (18:53)
[2023-06-23] MEDS: HYDROmorphone 0.5 MG/0.5 ML SYRINGE IVP PRN ×2 (18:54→19:07)
--- NOTE | 2023-06-23 18:55 | OPERATIVE REPORT ---
Operative Report - General Procedure Date: 06/23/23 Planned Procedure: Removal of internal fixation, possible revision of patellar fracture fixation right knee Pre-Op Diagnosis: Mechanical complication of previous surgical internal fixation for fracture Procedure Performed: Diagnosis: Mechanical and inflammatory complication of surgical internal fixation done elsewhere for displaced fracture right patella Procedure: 1. Removal of deep internal fixation, 3 K wires and mlaujv-uv-pofqz tension band wire right knee 2. Revision of patellar fracture fixation with 2 , 4.0 mm cannulated lag screws and a fiber tape ktswgb-jf-augvn tension band Post Op Diagnosis: Same as preoperative diagnosis - Procedure Note Primary Surgeon: Robin Reza MD Secondary Surgeon: Kristi Gamboa PAC Anesthesia Provider: Adrianna Preciado CRNA Anesthesia Technique: General ET tube Estimated Blood Loss (mL): 100 Indications: This is a 87-year-old woman with multiple medical problems including debility of age, cardiac disease, peripheral vascular disease, renal disease and diabetes mellitus. She also has a history of hypertension. She sustained a closed displaced patellar fracture of her right knee in [facility] within the last 3 months and underwent open reduction internal fixation with K wires and a wohtth-cl-quzse wire tension band. She has very thin, atrophic skin, atrophy of her right thigh and stiffness of the knee but was improving without overt comp lications until about 4 to 5 days ago when she was seen in the emergency room. She had a small wound over the K wire with signs of superficial infection/cellulitis. This has responded very well to intravenous antibiotics which were given initially and then oral antibiotics that she has been taking. The small 3 mm wound has healed and all signs of infection have resolved. She does have very prominent wire fixation and K wires proximally and distally with tenting of the skin proximally where she did have skin breakdown over the pin. Her x-ray showed that there fracture was intact but still visible. This was a transverse fracture involving the mid patella, slightly more proximal than distal. Because of the complications of the hardware, infection, prominence of hardware and pain, was felt that surgical treatment would be best for her.An informed consent was obtained and the complications were discussed including problems with wound healing, medical issues related to her comorbidities including heart attack, stroke and pulmonary embolus. There is also the potential for failure of internal fixation or refracture. An informed consent was obtained in our office prior to surgery. The patient and daughter were in agreement to the surgery Findings: There is no sign of any active infection in skin or deep structures. The patellar fracture appears largely healed. The intraoperative C-arm images after the internal fixation had been removed, K wires and tension band, showed persistence of the transverse patellar fracture line. Complications: None - Other Other Information/Narrative: The the patient was brought to the operating room, received a general endotracheal anesthesia, placed supine on the operating room table. The right lower extremity was prepped and draped in a sterile manner in the usual fashion. A tourniquet was not utilized. The previous midline incision was outlined with a sterile marking pen. A timeout procedure was performed by the entire operating room team and all were in agreement. The previous midline incision was reutilized. Care was taken with skin hooks and Metzenbaum scissors to achieve full-thickness skin flaps with the goal of trying to prevent skin necrosis as her skin is atrophic. The scar tissue had to be released to achieve full-thickness skin flaps, taking a little bit of the fascial layer and some areas because of scarring. The prominent internal fixation was identified, proximal K wire tips. The tips were bent with regard to the K wires both proximally and distally. The C-arm image intensifier was utilized to help find the pins distally as they were buried in soft tissue. The tension band was identified. The knot for the tension band was exposed. The tension band was cut and removed in 2 pieces. The K wires had to be exposed proximally and distally because of the band at the tips. The tips are either straighten or cut to facilitate removal which was performed. The patellar fracture was largely healed as there was no motion at fracture site. There was persistence of the fracture line on C-arm images indicating transverse healing fracture of mid patella right knee. I elected to prophylactically internally fix and to prevent refracture using 2 4.0 mm cannulated cancellous screws from proximal to distal in a parallel fashion. The screws were placed short of the inferior cortex to prevent prominence. Arthrex fiber tape was utilized and placed through the cannulated screws in a rrwure-hu-kmmqa fashion and were tensioned and tied. The Arthrex cannulated screws were utilized earlier as described using guidepin and cannulated drill before screw insertion. The wound was thoroughly irrigated. Both dilute Betadine and normal saline was utilized. Vancomycin powder, 2 g was placed in the superficial soft tissues. Minimal arthrotomy was done just to expose the tip of K wire. The subcutaneous tissue was closed with 3-0 Monocryl. The skin was closed standstill aj. There is seem to be good circulation to the skin flaps. Xeroform, sterile gauze, sterile cast padding and a fiberglass splint placed posteriorly to hold the knee in slight flexion was performed. She received 2 g of Ancef intravenously. She tolerated the procedure well. A physician [employer] assistant manager was medically necessary to help with prepping and draping, positioning, protection of vital structures, assistance during the procedure including wound closure, dressing and/or splinting.
[2023-06-23] MEDS ORDERED: LACTATED RINGERS 1,000 ML IV SCH (19:00)
[2023-06-23] MEDS ORDERED: NS W/20 MEQ KCL 1,000 ML IV SCH (19:00)
[2023-06-23] MEDS: fentaNYL 100 MCG/2 ML VIAL IVP PRN ×2 (19:26→19:37)
--- NOTE | 2023-06-23 19:42 | ANESTHESIA POST OP EVALUATION ---
Anesthesia Post Eval - Post Anesthesia Eval Vitals: Last Vital Signs Temp 36.4 C L 06/23/23 19:34 Pulse 63 06/23/23 19:34 Resp 14 06/23/23 19:34 BP 162/72 H 06/23/23 19:34 Pulse Ox 96 06/23/23 19:34 O2 Flow Rate CV Function Including HR & BP: Stable Pain Control: Satisfactory Nausea & Vomiting: Negative Mental Status: Baseline Respiratory Status: Airway Patent Hydration Status: Satisfactory Anesthesia Complications: None
[2023-06-23] MEDS ORDERED: ALBUTEROL NEB 2.5 MG/3 ML INH PRN (20:11)
[2023-06-23] MEDS: ceFAZolin (2G) 2 GM in SODIUM CHLORIDE 0.9% MINIBAG 100 ML IV SCH (20:35)
[2023-06-23] MEDS ORDERED: INSULIN GLARGINE-YFGN 300 UNIT/3 ML PEN SUBQ SCH (21:00)
[2023-06-23] MEDS: oxyCODONE 5 MG TABLET PO PRN (21:52)
[2023-06-23] MEDS ORDERED: DEXTROSE 50% ABBOJECT 25 GM/50 ML SYRINGE IVP ONE (22:06)
[2023-06-23] MEDS ORDERED: DEXTROSE 50% ABBOJECT 25 GM/50 ML SYRINGE IVP PRN (22:18)
[2023-06-23] MEDS: LABETALOL 100 MG TABLET PO SCH (22:37)
[2023-06-24] MEDS: ACETAMINOPHEN 500 MG TABLET PO PRN ×2 (00:32→06:17)
[2023-06-24] MEDS ORDERED: MORPHINE 2 MG/ML CARPUJECT IVP PRN (00:47)
[2023-06-24] MEDS: ceFAZolin (2G) 2 GM in SODIUM CHLORIDE 0.9% MINIBAG 100 ML IV SCH (03:08)
[2023-06-24] MEDS: oxyCODONE 5 MG TABLET PO PRN ×2 (06:18→13:46)
[2023-06-24] MEDS ORDERED: DOXAZOSIN MESYLATE 2 MG PO SCH (09:00)
[2023-06-24] MEDS ORDERED: LABETALOL 100 MG TABLET PO SCH (09:00)
[2023-06-24] MEDS ORDERED: LABETALOL HCL 200 MG PO SCH (09:00)
[2023-06-24] MEDS ORDERED: ASPIRIN EC 81 MG TABLET PO SCH (09:00)
[2023-06-24] MEDS ORDERED: cloNIDine 0.1 MG TABLET PO SCH (09:00)
[2023-06-24] MEDS: LABETALOL 100 MG TABLET PO SCH (09:26)
[2023-06-24] MEDS ORDERED: ACETAMINOPHEN 500 MG TABLET PO SCH (12:00)
[2023-06-24 12:19] LABS: ESTIMATED AVERAGE GLUCOSE 154 mg/dL (70-100)
[2023-06-24 12:32] VITALS: BP 191/66; O2SAT 96
--- NOTE | 2023-06-24 13:00 | PROVIDER PROGRESS NOTE ---
Subjective - General Procedure Date: 06/23/23 Post Op Days: 1 - Review of Systems General: positive: No symptoms - Other Other Information/Narrative: She is articulate, talking comfortably, minimal distress. Her pain to her right knee seems to be well-controlled. Objective - Patient Data Vital Signs: Vital Signs x48h Temp Pulse Resp BP Pulse Ox 06/24/23 12:20 63 191/66 H 06/24/23 12:00 36.8 C 63 16 187/80 H 96 06/24/23 07:40 36.4 C L 58 L 16 162/60 H 98 Weight: Weight 06/22/23 06/23/23 06/24/23 23:59 23:59 23:59 Weight (kg) 54.5 kg Intake & Output: Intake and Output Totals x24h 06/22/23 06/23/23 06/24/23 23:59 23:59 23:59 Intake Total 950 575 Output Total 450 550 Balance 500 25 - Lab Results Lab Results: 06/23/23 12:58 Other Lab Results: Lab Results x24hrs 06/24/23 06/24/23 06/24/23 Range/Units 12:16 06:08 04:58 WBC (4.8-10.8) x10^3/uL RBC (4.20-5.40) 10^6/uL Hgb (12.0-16.0) g/dL Hct (37.0-47.0) % MCV (81.0-99.0) fL MCH (27.0-31.0) pg MCHC (32.0-36.0) g/dL RDW (12.0-15.0) % Plt Count (130-450) 10^3/uL MPV (7.9-10.8) fL POC Whole Bld Glucose 163 H 153 H (70 - 100) mg/dL Estimat Average Glucose 154 H (70-100) mg/dL Hemoglobin A1c % 7.0 H (4.27-6.07) % 06/24/23 06/23/23 06/23/23 Range/Units 00:09 22:12 21:48 WBC (4.8-10.8) x10^3/uL RBC (4.20-5.40) 10^6/uL Hgb (12.0-16.0) g/dL Hct (37.0-47.0) % MCV (81.0-99.0) fL MCH (27.0-31.0) pg MCHC (32.0-36.0) g/dL RDW (12.0-15.0) % Plt Count (130-450) 10^3/uL MPV (7.9-10.8) fL POC Whole Bld Glucose 197 H 85 72 (70 - 100) mg/dL Estimat Average Glucose (70-100) mg/dL Hemoglobin A1c % (4.27-6.07) % 06/23/23 06/23/23 06/23/23 Range/Units 21:18 19:46 17:09 WBC (4.8-10.8) x10^3/uL RBC (4.20-5.40) 10^6/uL Hgb (12.0-16.0) g/dL Hct (37.0-47.0) % MCV (81.0-99.0) fL MCH (27.0-31.0) pg MCHC (32.0-36.0) g/dL RDW (12.0-15.0) % Plt Count (130-450) 10^3/uL MPV (7.9-10.8) fL POC Whole Bld Glucose 53 L* 80 84 (70 - 100) mg/dL Estimat Average Glucose (70-100) mg/dL Hemoglobin A1c % (4.27-6.07) % 06/23/23 06/23/23 06/23/23 Range/Units 16:25 15:34 15:18 WBC (4.8-10.8) x10^3/uL RBC (4.20-5.40) 10^6/uL Hgb (12.0-16.0) g/dL Hct (37.0-47.0) % MCV (81.0-99.0) fL MCH (27.0-31.0) pg MCHC (32.0-36.0) g/dL RDW (12.0-15.0) % Plt Count (130-450) 10^3/uL MPV (7.9-10.8) fL POC Whole Bld Glucose 100 129 H 53 L* (70 - 100) mg/dL Estimat Average Glucose (70-100) mg/dL Hemoglobin A1c % (4.27-6.07) % 06/23/23 06/23/23 06/23/23 Range/Units 14:37 12:58 12:58 WBC 12.2 H (4.8-10.8) x10^3/uL RBC 3.68 L (4.20-5.40) 10^6/uL Hgb 10.2 L (12.0-16.0) g/dL Hct 32.1 L (37.0-47.0) % MCV 87.2 (81.0-99.0) fL MCH 27.7 (27.0-31.0) pg MCHC 31.8 L (32.0-36.0) g/dL RDW 13.3 (12.0-15.0) % Plt Count 323 (130-450) 10^3/uL MPV 10.5 (7.9-10.8) fL POC Whole Bld Glucose 65 L 65 L (70 - 100) mg/dL Estimat Average Glucose (70-100) mg/dL Hemoglobin A1c % (4.27-6.07) % - Current Medications Current Medications: Current Medications Generic Name Dose Route Start Last Admin Trade Name Freq PRN Reason Stop Dose Admin Acetaminophen 1,000 mg 06/24/23 12:00 06/24/23 12:12 Acetaminophen 500 Mg Tablet PO 1,000 mg Q6HR ROBY Administration Aspirin 81 mg 06/24/23 09:00 06/24/23 09:26 Aspirin Ec 81 Mg Tablet PO 81 mg BID ROBY Administration Clonidine HCl 0.1 mg 06/24/23 09:00 06/24/23 09:26 Clonidine 0.1 Mg Tablet PO 0.1 mg BID ROBY Administration Insulin Glargine-yfgn 30 unit 06/23/23 21:00 06/23/23 21:21 Insulin Glargine-Yfgn 300 Unit/3 Ml Pen SUBQ Not Given QPM ROBY Labetalol HCl 50 mg 06/23/23 22:18 06/24/23 09:26 Labetalol 100 Mg Tablet PO 50 mg BID ROBY Administration Oxycodone HCl 5 mg 06/23/23 18:37 06/24/23 06:18 Oxycodone 5 Mg Tablet PO 5 mg Q6HR PRN Administration Breakthrough Pain(see comment) - Physical Exam Wound/Incisions: positive: Dressing dry and intact General Appearance: positive: No acute distress, Mild distress Neurologic/Psychiatric: positive: Oriented x3 Comments/Other: She is doing well. Her long-leg splint is clean and dry. Her neurovascular is intact. Her right foot is warm. She is comfortable stating. Impression/Plan - Problem List Problem List: Status post revision of patellar fracture right knee, doing well Her blood pressure is elevated but pretty much back to baseline. Her blood sugars are stable. Her vital signs are stable. Her discharge instructions remain the same. She needs to ambulate with a walker, weightbearing as tolerated right leg. I like to recheck her next Friday in the orthopedic clinic. We did discuss aspirin 81 mg twice daily for 6-week with her daughter. She also needs follow-up with her primary care physicianStatus post revision of patellar fracture right knee, doing well Her blood pressure is elevated but pretty much back to baseline. Her blood sugars are stable. Her vital signs are stable. Her discharge instructions remain the same. She needs to ambulate with a walker, weightbearing as tolerated right leg. I like to recheck her next Friday in the orthopedic clinic. We did discuss aspirin 81 mg twice daily for 6-week with her daughter. She also needs follow-up with her primary care physician
[2023-06-24] MEDS ORDERED: CELECOXIB 100 MG CAPSULE PO SCH (21:00)
== END 2023-06-24 14:25 | disposition home or self-care (01) ==
LOC: SDS 12:16 → MS2 19:35 → SDS 06-24 14:25
PROVIDERS: ATTEND Orthopaedic Surgery
DX: T84.196A Other mechanical complication of internal fixation device of bone of right lower leg, initial encounter (principal); T84.629A Infection and inflammatory reaction due to internal fixation device of unspecified bone of leg, initial encounter; Y83.8 Other surgical procedures as the cause of abnormal reaction of the patient, or of later complication, without mention of misadventure at the time of the procedure; S82.034D Nondisplaced transverse fracture of right patella, subsequent encounter for closed fracture with routine healing; X58.XXXD Exposure to other specified factors, subsequent encounter; M17.11 Unilateral primary osteoarthritis, right knee; L90.9 Atrophic disorder of skin, unspecified; J45.909 Unspecified asthma, uncomplicated; E11.22 Type 2 diabetes mellitus with diabetic chronic kidney disease; I12.9 Hypertensive chronic kidney disease with stage 1 through stage 4 chronic kidney disease, or unspecified chronic kidney disease; N18.30 Chronic kidney disease, stage 3 unspecified; E11.51 Type 2 diabetes mellitus with diabetic peripheral angiopathy without gangrene; Z79.4 Long term (current) use of insulin; Z96.652 Presence of left artificial knee joint
CPT/HCPCS: 20680; 27524; 36415; 83036; 85027; A9270; J1170; J3370; J7120